=== PATIENT | female | born 2000 | race Caucasian/White ===

== ENCOUNTER 2023-09-02 08:39 | Emergency (ER) | payer OTHER ==
[2023-09-02 09:02] VITALS: TEMP 97.2
[2023-09-02] MEDS ORDERED: DEXAMETHASONE SOD PHOSPHATE 10 MG/ML 1 ML VIAL IVP STA (09:04)
[2023-09-02] MEDS ORDERED: SODIUM CHLORIDE 0.9% 1,000 ML IV STA (09:04)
[2023-09-02] MEDS ORDERED: ACETAMINOPHEN TAB 500 MG TAB PO STA (09:06)
[2023-09-02] MEDS ORDERED: KETOROLAC 15 MG/ML 1 ML VIAL IVP STA (09:06)
[2023-09-02] MEDS ORDERED: METOCLOPRAMIDE 5 MG/ML 2 ML VIAL IVP STA (09:08)
--- NOTE | 2023-09-02 09:28 | ED ---
General Adult HPI - General Chief complaint: Fever Stated complaint: Weakness/Fever Time Seen by Provider: 09/02/23 08:43 Source: patient, RN notes reviewed, old records reviewed Mode of arrival: ambulatory Limitations: no limitations - History of Present Illness Initial comments: Patient is a 22-year-old female with no significant past medical history who presents emergency Department complaining of fevers, chills, upper respiratory complaints including rhinorrhea, cough, sore throat last week. Does not seem to be improving. Is on day 2 of the Z-Uzair after she went to urgent care yesterday. Patient's significant other did have some symptoms which have resolved. She did recently travel to [place] as well. Denies any current nausea, vo miting, diarrhea. Did have a few episodes of emesis yesterday. Does endorse mild headache. Endorses some ear drainage as well. No other acute complaints at this time. Took ibuprofen last night. Currently afebrile. Presents for further evaluation. - Related Data Allergies Allergy/AdvReac Type Severity Reaction Status Date / Time cefprozil [From Cefzil] AdvReac Unknown Verified 09/02/23 08:47 Childhood Penicillins AdvReac Unknown Verified 09/02/23 08:47 Childhood Review of Systems ROS Statement: Those systems with pertinent positive or pertinent negative responses have been documented in the HPI. Review of Systems: CONST: Endorses fevers and chills EYES: Denies blurry vision ENT: Endorses nasal congestion, sore throat C/V: Denies Chest pain RESP: Denies shortness of breath GI: Denies abdominal pain : Denies dysuria SKIN: Denies rash. MSK: Denies joint pain. NEURO: Endorses mild headache ROS Other: All systems not noted in ROS Statement are negative. Past Medical History Past Medical History: No Reported History History of Any Multi-Drug Resistant Organisms: None Reported Past Surgical History: Ear Surgery Past Psychological History: No Psychological Hx Reported Smoking Status: Former smoker Past Alcohol Use History: Occasional Past Drug Use History: Marijuana General Exam - General Exam Comments Initial Comments: General: Appears in mild discomfort secondary to illness HEAD: Normal with no signs of head trauma. EYES: PERRLA, EOMI, conjunctiva normal, no discharge. ENT: Hearing grossly intact, normal oropharynx. Erythematous posterior oropharynx. No stridor. RESPIRATORY: Clear breath sounds bilaterally. No wheezes, rales, or rhonchi. No hypoxia. No increased work of breathing. C/V: Tachycardic. S1 and S2 auscultated, peripheral pulses 2+ and intact throughout ABD: Abd is soft, nontender, nondistended EXT: Normal range of motion, no obvious deformity SKIN: No rashes or lesions observed on exposed skin. NEURO: Alert and oriented 4.. Limitations: no limitations Course Vital Signs 09/02/23 09/02/23 08:47 10:00 Temperature 97.2 F L Pulse Rate 133 H 111 H Respiratory 16 24 Rate Blood Pressure 108/74 132/86 O2 Sat by Pulse 100 100 Oximetry Medical Decision Making - Medical Decision Making Was pt. sent in by a medical professional or institution (, PA, RUBBER AND POUNDER, urgent care, hospital, or residential...) When possible be specific @ -No Did you speak to anyone other than the patient for history (EMS, parent, family, police, friend...)? What history was obtained from this source @ -No Did you review nursing and triage notes (agree or disagree)? Why? @ -I reviewed and agree with nursing and triage notes Were old charts reviewed (outside hosp., previous admission, EMS record, old EKG, old radiological studies, urgent care reports/EKG's, residential records)? Report findings @ -No old charts were reviewed Differential Diagnosis (chest pain, altered mental status, abdominal pain women, abdominal pain men, vaginal bleeding, weakness, fever, dyspnea, syncope, headache, dizziness, GI bleed, back pain, seizure, CVA, palpatations, mental health, musculoskeletal)? @ -URI, strep pharyngitis, mono, Covid, flu, pneumonia. This list is not all inclusive. EKG interpreted by me (3pts min.). @ -None known X-rays interpreted by me (1pt min.). @ -Chest x-ray unremarkable. No obvious evidence of pneumonia or infiltrate. CT interpreted by me (1pt min.). @ -None done U/S interpreted by me (1pt. min.). @ -None done What testing was considered but not performed or refused? (CT, X-rays, U/S, labs)? Why? @ -None What meds were considered but not given or refused? Why? @ -None Did you discuss the management of the patient with other professionals (professionals i.e. , PA, RUBBER AND POUNDER, lab, RT, psych nurse, social work associate, [place] line attendant, teacher, revenue officer, corrections caseworker)? Give summary @ -No Was smoking cessation discussed for >3mins.? @ -No Was critical care preformed (if so, how long)? @ -No Were there social determinants of health that impacted care today? How? (Homelessness, low income, unemployed, alcoholism, drug addiction, transportation, low edu. Level, literacy, decrease access to med. care, long-term, rehab)? @ -No Was there de-escalation of care discussed even if they declined (Discuss DNR or withdrawal of care, Hospice)? DNR status @ -No What co-morbidities impacted this encounter? (DM, HTN, Smoking, COPD, CAD, Cancer, CVA, ARF, Chemo, Hep., AIDS, mental health diagnosis, sleep apnea, morbid obesity)? @ -None Was patient admitted / discharged? Hospital course, mention meds given and route, prescriptions, significant lab abnormalities, going to OR and other pertinent info. @ -Based on the patient's presentation and physical exam, I'm concerned for upper respiratory illness for the patient. We will obtain viral swabs, peripheral testing for mono, strep swab. We will also obtain chest x-ray. Patient will be symptomatically treated with some IV fluids, Reglan, Toradol, Decadron, Tylenol. Patient was in agreement this plan. Vital signs within acceptable limits other than mild tachycardia at this time. We will continue to monitor. Chest x-ray unremarkable. Patient's labs are negative for mono, flu, RSV, Covid, strep. On reevaluation, patient's vital signs improved including a tachycardia. She is feeling improved. She'll be discharged home following fluids. She was in agreement this plan. Discussion likely has a viral pharyngitis. She was started on a Z-Uzair by urgent care and I recommend she complete the course of antibiotics. I'll provide her with a starter pack of Zofran. She was in agreement this plan. I will provide the patient with a prescription for ODT Zofran. I instructed the patient to follow up with their PCP in the next 1-3 days. I explained that the patient should return to the emergency department if they experience any worsening symptoms. Strict return precautions were discussed with the patient. The patient expressed understanding of these instructions. I answered all questions that the patient had. The patient was discharged home in good condition with their prescriptions and follow up information. Undiagnosed new problem with uncertain prognosis? @ -No Drug Therapy requiring intensive monitoring for toxicity (Heparin, Nitro, Insulin, Cardizem)? @ -No Were any procedures done? @ -No Diagnosis/symptom? @ -URI, nausea and vomiting, viral syndrome Acute, or Chronic, or Acute on Chronic? @ -Acute Uncomplicated (without systemic symptoms) or Complicated (systemic symptoms)? @ -Complicated Side effects of treatment? @ -none Exacerbation, Progression, or Severe Exacerbation] @ -no Poses a threat to life or bodily function? @ -no - Lab Data Lab Results 09/02/23 09/02/23 09/02/23 Range/Units 09:28 09:28 09:28 Heterophile Antibody Negative (Negative) Influenza Type A (PCR) Not Detected (Not Detectd) Influenza Type B (PCR) Not Detected (Not Detectd) RSV (PCR) Not Detected (Not Detectd) SARS-CoV-2 (PCR) Not Detected (Not Detectd) Group A Strep (PCR) NOT DETECTED (Not Detectd) Disposition Clinical Impression: URI (upper respiratory infection), Nausea and vomiting, Viral syndrome Disposition: HOME SELF-CARE Condition: Good Instructions (If sedation given, give patient instructions): Viral Syndrome (ED) Is patient prescribed a controlled substance at d/c from ED?: No Referrals: None,Stated [Primary Care Provider] - 1-2 days Time of Disposition: 10:43
[2023-09-02 10:03] VITALS: BP 132/86; PULSE 111; RESP 24
--- NOTE | 2023-09-02 10:19 | XR ---
EXAMINATION TYPE: XR chest 2V DATE OF EXAM: 09/02/2023 10:03 AM CLINICAL INDICATION:Female, 22 years old with history of cough; [facility] COMPARISON: None TECHNIQUE: XR chest 2V Frontal and lateral views of the chest. FINDINGS: Lines/Tubes: No indwelling lines are seen. There are presumed extrinsic radiodensities over the field of view. Lungs/Pleura: There is no evidence of pleural effusion, focal consolidation, or pneumothorax. Pulmonary vascularity: Unremarkable. Heart/mediastinum: Cardiomediastinal silhouette is unremarkable. Musculoskeletal: No evidence of an acute bony abnormality. Other findings: None significant. IMPRESSION: Unremarkable chest radiographs.
[2023-09-02] MEDS ORDERED: ONDANSETRON 4 MG ODT STARTER PACK 2 TAB BTL PO STA (10:44)
== END 2023-09-02 11:12 | disposition home or self-care (01) ==
LOC: EC 08:39
DX: J06.9 Acute upper respiratory infection, unspecified (principal); B34.9 Viral infection, unspecified; R11.2 Nausea with vomiting, unspecified; Z87.891 Personal history of nicotine dependence; F12.90 Cannabis use, unspecified, uncomplicated; Z88.0 Allergy status to penicillin
CPT/HCPCS: 36415; 87651; 86308; 87636; 71046; 99284; 96374; 96375 ×2; 96361; J1100; J2765; J1885; S0119

== ENCOUNTER 2023-09-03 19:39 | Inpatient (IN) | payer OTHER ==
--- NOTE | 2023-09-03 20:29 | ED ---
URI HPI - General Source: RN notes reviewed <Shannon Mata - Last Filed: 09/04/23 00:36> - General Limitations: altered mental status - History of Present Illness MD Complaint: cough Onset/Timin -: week(s) Consistency: constant Improves With: nothing Worsens With: nothing Associated Symptoms: myalgias, nasal congestion, sore throat, shortness of breath Treatments Prior to Arrival: none <Rich Jackson - Last Filed: 09/10/23 20:23> - General Stated Complaint: SOB, Weakness,Chest Pain Time Seen by Provider: 09/03/23 20:27 - History of Present Illness Initial Comments: Patient is a 22-year-old female who presents to the emergency department for upper respiratory symptoms. Patient was evaluated yesterday for similar concern states she is feeling worse. (Shannon Mata) This patient is 22-year-old woman who arrives not feeling well. Patient has been having approximately one week of congestion, cough, shortness of breath. She states she is feeling very fatigued and rundown. (Rich Jackson) - Related Data Previous Rx's Medication Instructions Recorded INSULIN ASPART (NovoLOG) [NovoLOG 6 unit SQ ACHS 30 Days #5 each 09/06/23 (formulary)] Insulin Glargine,Hum.rec.anlog 35 units SQ HS 30 Days #6 each 09/07/23 [Lantus Solostar Pen] Potassium Chloride ER [K-Dur 20] 20 meq PO DAILY #30 tab 09/07/23 Allergies Allergy/AdvReac Type Severity Reaction Status Date / Time cefprozil [From Cefzil] AdvReac Unknown Verified 09/02/23 08:47 Childhood Penicillins AdvReac Unknown Verified 09/02/23 08:47 Childhood Review of Systems ROS Other: All systems not noted in ROS Statement are negative. <Shannon Mata - Last Filed: 09/04/23 00:36> ROS Other: All systems not noted in ROS Statement are negative. Limitations: ROS unobtainable due to patients medical condition Constitutional: Reports: weakness ENT: Reports: throat pain Respiratory: Reports: dyspnea Cardiovascular: Denies: chest pain, palpitations Gastrointestinal: Reports: nausea. Denies: abdominal pain, vomiting, diarrhea Genitourinary: Denies: dysuria, hematuria Musculoskeletal: Denies: back pain Skin: Denies: rash Neurological: Denies: headache, weakness, numbness <CassiaRich perez - Last Filed: 09/10/23 20:23> ROS Statement: Those systems with pertinent positive or pertinent negative responses have been documented in the HPI. Past Medical History Past Medical History: No Reported History History of Any Multi-Drug Resistant Organisms: None Reported Past Surgical History: Ear Surgery Past Psychological History: No Psychological Hx Reported Smoking Status: Former smoker Past Alcohol Use History: Occasional Past Drug Use History: Marijuana <Shannon Mata - Last Filed: 09/04/23 00:36> General Exam <Shannon Mata - Last Filed: 09/04/23 00:36> Limitations: altered mental status General appearance: alert, in no apparent distress Head exam: Present: atraumatic, normocephalic Eye exam: Present: normal appearance. Absent: scleral icterus, conjunctival injection ENT exam: Present: mucous membranes dry Neck exam: Present: normal inspection, full ROM Respiratory exam: Present: respiratory distress, other (Tachypnea with Kussmaul respirations). Absent: rales, rhonchi, stridor, decreased breath sounds Cardiovascular Exam: Present: normal rhythm, tachycardia, normal heart sounds. Absent: systolic murmur, diastolic murmur, rubs, gallop GI/Abdominal exam: Present: soft. Absent: distended, tenderness, guarding, rebound, rigid, mass Extremities exam: Present: normal inspection, normal capillary refill. Absent: pedal edema, calf tenderness Back exam: Present: normal inspection. Absent: CVA tenderness (R), CVA tenderness (L) Neurological exam: Present: alert Skin exam: Present: warm, dry, intact, normal color. Absent: rash <CassiaRich perez - Last Filed: 09/10/23 20:23> - General Exam Comments Initial Comments: Visual Physical Exam Vital signs reviewed General: Well-appearing, nontoxic, no acute distress. Head: Normocephalic, atraumatic Eyes: PERRLA, EOMI ENT: Airway patent Chest: Nonlabored breathing Skin: No visual rash, normal skin tone Neuro: Alert and oriented 3 Musculoskeletal: No gross abnormalities (EsperanzaShannon) Course Vital Signs 09/03/23 09/03/23 09/04/23 20:21 23:00 00:15 Temperature 98.7 F Pulse Rate 116 H 67 Respiratory 22 26 H 22 Rate Blood Pressure 116/73 131/93 O2 Sat by Pulse 99 95 Oximetry 09/04/23 01:30 Temperature Pulse Rate 126 H Respiratory 20 Rate Blood Pressure 131/87 O2 Sat by Pulse 100 Oximetry Medical Decision Making - Lab Data Result diagrams: 09/03/23 22:27 09/03/23 22:27 <Shannon Mata - Last Filed: 09/04/23 00:36> - Lab Data Result diagrams: 09/07/23 05:34 09/07/23 05:34 - EKG Data -: EKG Interpreted by Me EKG shows normal: sinus rhythm, axis (Normal), intervals (Normal), QRS complexes (Possible right ventricular conduction delay) Rate: tachycardia (Rate 111 bpm) Interpretation: nonspecific ST-T wave changes <Rich Jackson - Last Filed: 09/10/23 20:23> - Medical Decision Making I performed the QuickNote portion of this chart - Shannon Mata PA-C (Shannon Mata) Patient had chest x-ray which I interpreted to show no infiltrate, no congestive heart failure, no pneumothorax. Patient is 22-year-old woman here to have evaluation for fatigue, dyspnea, and on exam there findings concerning for possible DKA. The workup does reveal patient to be in DKA though no history of diabetes. Case is discussed with admitting physician, patient is started on fluid and insulin, patient will be admitted to have further treatment and education Was pt. sent in by a medical professional or institution (MARGY Washburn, REGULATORY AND COMPLIANCE TECHNICIAN, urgent care, hospital, or long term...) When possible be specific @ -[No] Did you speak to anyone other than the patient for history (EMS, parent, family, police, friend...)? What history was obtained from this source @ -[Patient's significant other did give some history Did you review nursing and triage notes (agree or disagree)? Why? @ -[I reviewed and agree with nursing and triage notes] Were old charts reviewed (outside hosp., previous admission, EMS record, old EKG, old radiological studies, urgent care reports/EKG's, long term records)? Report findings @ -[Yes, old charts were reviewed] Differential Diagnosis (chest pain, altered mental status, abdominal pain women, abdominal pain men, vaginal bleeding, weakness, fever, dyspnea, syncope, headache, dizziness, GI bleed, back pain, seizure, CVA, palpatations, mental health, musculoskeletal)? @ -[Differential Dyspnea: Coronary syndrome, arrhythmia, tamponade, asthma, COPD, pulmonary embolism, pneumonia, pneumothorax, pulmonary effusion, anaphylaxis, diabetic ketoacidosis, flailed chest, pulmonary contusion, diaphragmatic rupture, anemia, neuromuscular, this is not meant to be an all-inclusive list. EKG interpreted by me (3pts min.). @ -[As above] X-rays interpreted by me (1pt min.). @ -[I interpreted as above CT interpreted by me (1pt min.). @ -[None done] U/S interpreted by me (1pt. min.). @ -[None done] What testing was considered but not performed or refused? (CT, X-rays, U/S, labs)? Why? @ -[None] What meds were considered but not given or refused? Why? @ -[None] Did you discuss the management of the patient with other professionals (professionals i.e. , PA, REGULATORY AND COMPLIANCE TECHNICIAN, lab, RT, psych nurse, high school social science teacher, dairy nutritionist, teacher, commercial account officer, case resource manager)? Give summary @ -[Case discussed with the admitting physician and also with the mid-level practitioner covering ICU. Treatment recommendations are incorporated Was smoking cessation discussed for >3mins.? @ -[No] Was critical care preformed (if so, how long)? @ -[yes, 40 minutes Were there social determinants of health that impacted care today? How? (Homelessness, low income, unemployed, alcoholism, drug addiction, transp ortation, low edu. Level, literacy, decrease access to med. care, skilled nursing, rehab)? @ -[No] Was there de-escalation of care discussed even if they declined (Discuss DNR or withdrawal of care, Hospice)? DNR status @ -[No] What co-morbidities impacted this encounter? (DM, HTN, Smoking, COPD, CAD, Cancer, CVA, ARF, Chemo, Hep., AIDS, mental health diagnosis, sleep apnea, morbid obesity)? @ -[None] Was patient admitted / discharged? Hospital course, mention meds given and route, prescriptions, significant lab abnormalities, going to OR and other pertinent info. @ -[Admitted to ICU, as above Undiagnosed new problem with uncertain prognosis? @ -[No] Drug Therapy requiring intensive monitoring for toxicity (Heparin, Nitro, Insulin, Cardizem)? @ -[No] Were any procedures done? @ -[No] Diagnosis/symptom? @ -[Acute diabetic ketoacidosis New-onset diabetes Acute, or Chronic, or Acute on Chronic? @ -[Acute Uncomplicated (without systemic symptoms) or Complicated (systemic symptoms)? @ -[Complicated by ketoacidosis Side effects of treatment? @ -[No] Exacerbation, Progression, or Severe Exacerbation? @ -[No] Poses a threat to life or bodily function? How? (Chest pain, [place], [place], pneumonia, PE, COPD, DKA, ARF, appy, cholecystitis, CVA, Diverticulitis, Homicidal, Suicidal, threat to staff... and all critical care pts) @ -[Yes there is significant morbidity/mortality associated with DKA. May worsen to multisystem organ failure/ (Rich Jackson) - Lab Data Lab Results 09/03/23 09/03/23 09/03/23 Range/Units 01:13 22:27 22:27 WBC 16.1 H (3.8-10.6) k/uL RBC 5.36 (3.80-5.40) m/uL Hgb 15.8 (11.4-16.0) gm/dL Hct 46.3 H (34.0-46.0) % MCV 86.4 (80.0-100.0) fL MCH 29.4 (25.0-35.0) pg MCHC 34.1 (31.0-37.0) g/dL RDW 14.4 (11.5-15.5) % Plt Count 457 H (150-450) k/uL MPV 7.3 Neutrophils % (Manual) 78 % Lymphocytes % (Manual) 15 % Monocytes % (Manual) 7 % Metamyelocytes % 1 % Neutrophils # (Manual) 12.56 H (1.3-7.7) k/uL Lymphocytes # (Manual) 2.42 (1.0-4.8) k/uL Monocytes # (Manual) 1.13 H (0-1.0) k/uL Metamyelocytes # (Man) 0.16 H (0) k/uL Nucleated RBCs 0 (0-0) /100 WBC Manual Slide Review Performed Poikilocytosis (manual Present VBG pH 7.00 L* (7.31-7.41) VBG pCO2 22 L (37-51) mmHg VBG HCO3 6 L* (24-28) mmol/L Sodium 131 L (137-145) mmol/L Potassium 3.3 L (3.5-5.1) mmol/L Chloride 101 (98-107) mmol/L Carbon Dioxide <5 L* (22-30) mmol/L Anion Gap mmol/L BUN 7 (7-17) mg/dL Creatinine 0.69 (0.52-1.04) mg/dL Est GFR (CKD-EPI)AfAm >90 (>60 ml/min/1.73 sqM) Est GFR (CKD-EPI)NonAf >90 (>60 ml/min/1.73 sqM) Glucose 356 H (74-99) mg/dL POC Glucose (mg/dL) (70-110) mg/dL POC Glu [employer] Sales ID Calcium 10.7 H (8.4-10.2) mg/dL Total Bilirubin 0.9 (0.2-1.3) mg/dL AST 25 (14-36) U/L ALT 13 (4-34) U/L Alkaline Phosphatase 175 H (38-126) U/L Total Protein 8.2 (6.3-8.2) g/dL Albumin 4.5 (3.5-5.0) g/dL Acetone, Qual (Negative) Influenza Type A (PCR) (Not Detectd) Influenza Type B (PCR) (Not Detectd) RSV (PCR) (Not Detectd) SARS-CoV-2 (PCR) (Not Detectd) Group A Strep (PCR) (Not Detectd) 09/03/23 09/03/23 09/03/23 Range/Units 22:30 22:30 22:44 WBC (3.8-10.6) k/uL RBC (3.80-5.40) m/uL Hgb (11.4-16.0) gm/dL Hct (34.0-46.0) % MCV (80.0-100.0) fL MCH (25.0-35.0) pg MCHC (31.0-37.0) g/dL RDW (11.5-15.5) % Plt Count (150-450) k/uL MPV Neutrophils % (Manual) % Lymphocytes % (Manual) % Monocytes % (Manual) % Metamyelocytes % % Neutrophils # (Manual) (1.3-7.7) k/uL Lymphocytes # (Manual) (1.0-4.8) k/uL Monocytes # (Manual) (0-1.0) k/uL Metamyelocytes # (Man) (0) k/uL Nucleated RBCs (0-0) /100 WBC Manual Slide Review Poikilocytosis (manual VBG pH (7.31-7.41) VBG pCO2 (37-51) mmHg VBG HCO3 (24-28) mmol/L Sodium (137-145) mmol/L Potassium (3.5-5.1) mmol/L Chloride (98-107) mmol/L Carbon Dioxide (22-30) mmol/L Anion Gap mmol/L BUN (7-17) mg/dL Creatinine (0.52-1.04) mg/dL Est GFR (CKD-EPI)AfAm (>60 ml/min/1.73 sqM) Est GFR (CKD-EPI)NonAf (>60 ml/min/1.73 sqM) Glucose (74-99) mg/dL POC Glucose (mg/dL) (70-110) mg/dL POC Glu [employer] Sales ID Calcium (8.4-10.2) mg/dL Total Bilirubin (0.2-1.3) mg/dL AST (14-36) U/L ALT (4-34) U/L Alkaline Phosphatase (38-126) U/L Total Protein (6.3-8.2) g/dL Albumin (3.5-5.0) g/dL Acetone, Qual Positive (Negative) Influenza Type A (PCR) Not Detected (Not Detectd) Influenza Type B (PCR) Not Detected (Not Detectd) RSV (PCR) Not Detected (Not Detectd) SARS-CoV-2 (PCR) Not Detected (Not Detectd) Group A Strep (PCR) NOT DETECTED (Not Detectd) 09/04/23 Range/Units 00:20 WBC (3.8-10.6) k/uL RBC (3.80-5.40) m/uL Hgb (11.4-16.0) gm/dL Hct (34.0-46.0) % MCV (80.0-100.0) fL MCH (25.0-35.0) pg MCHC (31.0-37.0) g/dL RDW (11.5-15.5) % Plt Count (150-450) k/uL MPV Neutrophils % (Manual) % Lymphocytes % (Manual) % Monocytes % (Manual) % Metamyelocytes % % Neutrophils # (Manual) (1.3-7.7) k/uL Lymphocytes # (Manual) (1.0-4.8) k/uL Monocytes # (Manual) (0-1.0) k/uL Metamyelocytes # (Man) (0) k/uL Nucleated RBCs (0-0) /100 WBC Manual Slide Review Poikilocytosis (manual VBG pH (7.31-7.41) VBG pCO2 (37-51) mmHg VBG HCO3 (24-28) mmol/L Sodium (137-145) mmol/L Potassium (3.5-5.1) mmol/L Chloride (98-107) mmol/L Carbon Dioxide (22-30) mmol/L Anion Gap mmol/L BUN (7-17) mg/dL Creatinine (0.52-1.04) mg/dL Est GFR (CKD-EPI)AfAm (>60 ml/min/1.73 sqM) Est GFR (CKD-EPI)NonAf (>60 ml/min/1.73 sqM) Glucose (74-99) mg/dL POC Glucose (mg/dL) 320 H (70-110) mg/dL POC Glu [employer] Sales ID Mclaughlin, Priscilla Calcium (8.4-10.2) mg/dL Total Bilirubin (0.2-1.3) mg/dL AST (14-36) U/L ALT (4-34) U/L Alkaline Phosphatase (38-126) U/L Total Protein (6.3-8.2) g/dL Albumin (3.5-5.0) g/dL Acetone, Qual (Negative) Influenza Type A (PCR) (Not Detectd) Influenza Type B (PCR) (Not Detectd) RSV (PCR) (Not Detectd) SARS-CoV-2 (PCR) (Not Detectd) Group A Strep (PCR) (Not Detectd) Critical Care Time Critical Care Time: Yes (40 minutes) <Rich Jackson - Last Filed: 09/10/23 20:23> Disposition <Shannon Mata - Last Filed: 09/04/23 00:36> Is patient prescribed a controlled substance at d/c from ED?: No <Rich Jackson - Last Filed: 09/10/23 20:23> Clinical Impression: DKA (diabetic ketoacidosis) Disposition: ADMITTED IP TO THIS HOSP Condition: Fair
--- NOTE | 2023-09-03 21:14 | XR ---
EXAMINATION TYPE: XR chest 2V DATE OF EXAM: 09/03/2023 9:02 PM CLINICAL INDICATION:Female, 22 years old with history of SOB; COMPARISON: Chest radiographs from 09/02/2023 TECHNIQUE: XR chest 2V Frontal and lateral views of the chest. FINDINGS: Lungs/Pleura: There is no evidence of pleural effusion, focal consolidation, or pneumothorax. Pulmonary vascularity: Unremarkable. Heart/mediastinum: Cardiomediastinal silhouette is unremarkable. Musculoskeletal: No acute osseous pathology. IMPRESSION: No acute cardiopulmonary disease/process.
[2023-09-03 22:50] LABS: HCT 46.3 % (34.0-46.0); HGB 15.8 gm/dL (11.4-16.0); MCH 29.4 pg (25.0-35.0); MCHC 34.1 g/dL (31.0-37.0); MCV 86.4 fL (80.0-100.0); Mean Platelet Volume 7.3; Platelet Count 457 k/uL (150-450); RBC 5.36 m/uL (3.80-5.40); RDW 14.4 % (11.5-15.5); WBC 16.1 k/uL (3.8-10.6)
[2023-09-03 23:08] LABS: ALT 13 U/L (4-34); AST 25 U/L (14-36); African American GFR (CKD) >90 (>60 ml/min/1.73 sqM); Albumin 4.5 g/dL (3.5-5.0); Alkaline Phosphatase 175 U/L (38-126); Blood Urea Nitrogen 7 mg/dL (7-17); Calcium 10.7 mg/dL (8.4-10.2); Chloride 101 mmol/L (98-107); Glucose 356 mg/dL (74-99); Non-African American GFR(CKD) >90 (>60 ml/min/1.73 sqM); Sodium 131 mmol/L (137-145); Total Bilirubin 0.9 mg/dL (0.2-1.3); Total Protein 8.2 g/dL (6.3-8.2)
[2023-09-03 23:37] LABS: Carbon Dioxide <5 mmol/L (22-30); Potassium 3.3 mmol/L (3.5-5.1)
[2023-09-03] MEDS ORDERED: Potassium Replacement Protocol 1 EACH MISC MISCELLANE PRN (23:48)
[2023-09-03] MEDS ORDERED: Magnesium Replacement Protocol 1 EACH MISC MISCELLANE PRN (23:48)
[2023-09-03] MEDS ORDERED: SODIUM CHLORIDE 0.9% 1,000 ML IV ONE (23:48)
[2023-09-03] MEDS ORDERED: DEXTROSE 50% SYRINGE 50 ML IVP PRN ×2 (23:48)
[2023-09-03] MEDS ORDERED: INSULIN REGULAR BOLUS (FROM DRIP BAG) IV ONE (23:48)
[2023-09-04 00:24] LABS: Glucose,Whole Blood 320 mg/dL (70-110)
[2023-09-04] MEDS: INSULIN REGULAR 100 UNIT in SODIUM CHLORIDE 0.9% 100 ML IV SCH ×2 (00:34→12:28)
[2023-09-04] MEDS: SODIUM CHLORIDE 0.9% 1,000 ML IV SCH ×2 (00:35→02:36)
[2023-09-04 01:34] LABS: Glucose,Whole Blood 322 mg/dL (70-110)
[2023-09-04 01:42] LABS: Glucose,Whole Blood 259 mg/dL (70-110)
[2023-09-04 01:48] LABS: Lymphocytes # (M) 2.42 k/uL (1.0-4.8); Metamyelocytes # (M) 0.16 k/uL (0); Metamyelocytes % 1 %; Monocytes # (M) 1.13 k/uL (0-1.0); Neutrophils # (M) 12.56 k/uL (1.3-7.7); Neutrophils % (M) 78 %; Nucleated Red Blood Cells 0 /100 WBC (0-0); Total Cells Counted 200
[2023-09-04 01:52] LABS: Poikilocytosis (M) Present
[2023-09-04 02:12] LABS: Glucose,Whole Blood 227 mg/dL (70-110)
[2023-09-04] MEDS ORDERED: Potassium Replacement Protocol 1 EACH MISC MISCELLANE PRN (02:15)
--- NOTE | 2023-09-04 02:28 | P.CNPUL ---
History of Present Illness Consult date: 09/04/23 Requesting physician: Rich Jackson Reason for consult: other (ICU management) Chief complaint: Shortness of breath and cough History of present illness: I am seeing this patient in new consultation today 09/04/2023 in the intensive care unit for acute diabetic ketoacidosis with new onset diabetes mellitus type 1. Patient is a 22-year-old white female with limited past medical history. Patient states over the last 1 week she's been experiencing URI like symptoms such as fever, chills, cough, rhinorrhea, sore throat. She was treated at a local urgent care clinic with a Z-Uzair. Does not have a PCP. She states that she's been feeling rundown for the last week. Reports some recent weight loss. Admits polyuria and polydipsia. She came back to the emergency room yesterday after experiencing some nausea and vomiting. On arrival to emergency room, she was found to be in a state of diabetic ketoacidosis. Blood glucose 356, serum bicarb less than 5, anion gap unmeasurable, acetone positive. Patient was started on the DKA protocol. Insulin is currently infusing at 6.4 units per hour. Normal saline is infusing at 200 ML's per hour. She is currently lying in bed, on room air, in no acute distress. She has kussmaul respirations. Heart rhythm is sinus tachycardia bedside monitor. Blood pressure is normotensive. Chest x-ray on arrival did not show any acute cardiopulmonary pro cess. Negative for influenza, RSV, COVID-19, group A strep. CBC on arrival showed some leukocytosis with a WBC count of 16.1, hemoglobin 15.8, hematocrit 46.3, platelets 457. Remainder of the BMP on arrival shows a sodium 131, potassium 3.3, chloride 101, BUN 7, creatinine 0.69. Urinalysis pending. Currently afebrile. Patient will be monitored in the ICU until her DKA resolves. Review of Systems REVIEW OF SYSTEMS: CONSTITUTIONAL: Admits some recent weight loss EYES: Denies change in vision. EARS, NOSE, MOUTH, THROAT: Admits generalized headache, rhinorrhea, sore throat. CARDIOVASCULAR: Denies chest pain, palpitations or syncopal episodes. RESPIRATORY: Denies shortness of breath, congestion or hemoptysis. Admits dry cough GASTROINTESTINAL: Denies change in appetite, abdominal pain, or diarrhea. Admits nausea and vomiting GENITOURINARY: Denies hematuria, denies infections. Admits polyuria MUSKULOSKELETAL: Denies pain, denies swelling. INTEGUMENTARY: Denies rash, denies eczema. NEUROLOGICAL: Denies recent memory loss, no recent seizure activity. PSYCHIATRIC: Denies anxiety, denies depression. HEMATOLOGIC/LYMPHATIC: Denies anemia, denies enlarged lymph node Past Medical History Past Medical History: No Reported History History of Any Multi-Drug Resistant Organisms: None Reported Past Surgical History: Ear Surgery Past Psychological History: No Psychological Hx Reported Smoking Status: Former smoker Past Alcohol Use History: Occasional Past Drug Use History: Marijuana Medications and Allergies Allergies Allergy/AdvReac Type Severity Reaction Status Date / Time cefprozil [From Cefzil] AdvReac Unknown Verified 09/02/23 08:47 Childhood Penicillins AdvReac Unknown Verified 09/02/23 08:47 Childhood Physical Exam Vitals: Vital Signs Temp Pulse Resp BP Pulse Ox 09/04/23 01:30 126 H 20 131/87 100 09/04/23 00:15 67 22 131/93 95 09/03/23 23:00 26 H 09/03/23 20:21 98.7 F 116 H 22 116/73 99 Intake and Output 09/03/23 09/03/23 09/04/23 14:59 22:59 06:59 Intake Total 200 Balance 200 Intake: IV 200 Sodium Chloride 0.9% 1, 200 000 ml @ 200 mls/hr IV . Q5H [facility] Rx#:[id number] Other: Weight 64.41 kg GENERAL EXAM: Alert, 22-year-old white female, comfortable in no apparent distress. HEAD: Normocephalic and atraumatic EYES: Normal reaction of pupils, equal size. NOSE: Clear with pink turbinates. THROAT: Posterior oral pharynx is erythemic, no exudates. Dry mucous membranes NECK: No masses, no JVD. CHEST: No chest wall deformity. LUNGS: Equal air entry with no crackles, wheeze, rhonchi or dullness. On room air. Kussmaul respirations CVS: S1 and S2 normal with no audible murmur, regular rhythm. No extra heart sounds ABDOMEN: No hepatosplenomegaly, active bowel sounds, no guarding or rigidity. SPINE: No scoliosis or deformity SKIN: No rashes CENTRAL NERVOUS SYSTEM: No focal deficits, tone is normal in all 4 extremities. EXTREMITIES: There is no peripheral edema, clubbing, or cyanosis. Peripheral pulses are intact. Results - Laboratory Findings CBC and BMP: 09/03/23 22:27 09/03/23 22:27 Abnormal lab findings: Abnormal Labs 09/03/23 09/03/23 09/03/23 01:13 22:27 22:27 WBC 16.1 H Hct 46.3 H Plt Count 457 H Neutrophils # (Manual) 12.56 H Monocytes # (Manual) 1.13 H Metamyelocytes # (Man) 0.16 H VBG pH 7.00 L* VBG pCO2 22 L VBG HCO3 6 L* Sodium 131 L Potassium 3.3 L Carbon Dioxide <5 L* Glucose 356 H POC Glucose (mg/dL) Calcium 10.7 H Alkaline Phosphatase 175 H 09/04/23 09/04/23 09/04/23 00:20 01:28 01:40 WBC Hct Plt Count Neutrophils # (Manual) Monocytes # (Manual) Metamyelocytes # (Man) VBG pH VBG pCO2 VBG HCO3 Sodium Potassium Carbon Dioxide Glucose POC Glucose (mg/dL) 320 H 322 H 259 H Calcium Alkaline Phosphatase - Diagnostic Findings Chest x-ray: image reviewed Assessment and Plan Assessment: Acute diabetic ketoacidosis Metabolic anion gap acidosis, secondary to above New-onset type 1 diabetes mellitus Suspected viral URI Leukocytosis, likely reactive DKA Plan: Patient's medications, labs, chest x-ray reviewed Continue DKA protocol and insulin infusion Monitor electrolytes every 4 hours and replace potassium per protocol Consult dietitian Patient educated on new-onset diabetes mellitus type 1 We will continue to follow while the patient is being monitored in the intensive care unit I have personally seen and examined the patient, performed the documentation and the assessment and plan as written. Number of minutes spent on the visit:20 Time with Patient: Greater than 30
[2023-09-04] MEDS: D5-0.45% NACL WITH KCL 20MEQ/L 1,000 ML IV SCH ×3 (02:35→15:41)
[2023-09-04] MEDS: POTASSIUM CHLORIDE 10 MEQ in WATER FOR INJECTION 1 100ML.BAG IVPB SCH ×12 (02:36→16:30)
[2023-09-04 03:05] LABS: Glucose,Whole Blood 184 mg/dL (70-110)
[2023-09-04 04:09] LABS: Amorphous Sediment,Urine Rare /hpf; Bacteria,Urine Rare /hpf; Granular Casts,Urine 4 /lpf (0); Hyaline Casts,Urine 7 /lpf (0-2); Mucus,Urine Rare /hpf; RBC,Urine 3 /hpf (0-5); Squamous Epithelial Cell,Urine 2 /hpf (0-4)
[2023-09-04 04:10] LABS: Appearance,Urine Clear (Clear); Color,Urine Yellow; Glucose,Urine (UA) 2+ (Negative); PH, Urine 5.5 (5.0-8.0); Protein,Urine 1+ (Negative); Specific Gravity,Urine 1.015 (1.001-1.035)
[2023-09-04 04:11] LABS: Glucose,Whole Blood 212 mg/dL (70-110)
[2023-09-04 04:12] LABS: Bilirubin,Urine Negative (Negative); Ketones,Urine 3+ (Negative)
[2023-09-04 04:13] LABS: Blood,Urine Large (Negative); Leukocyte Esterase,Urine Negative (Negative); Nitrite,Urine Negative (Negative); Urobilinogen,Urine <2.0 mg/dL (<2.0)
[2023-09-04 04:56] LABS: African American GFR (CKD) >90 (>60 ml/min/1.73 sqM); Anion Gap 17 mmol/L; Blood Urea Nitrogen 6 mg/dL (7-17); Chloride 111 mmol/L (98-107); Glucose 212 mg/dL (74-99); Non-African American GFR(CKD) >90 (>60 ml/min/1.73 sqM); Sodium 135 mmol/L (137-145)
[2023-09-04 05:21] LABS: Glucose,Whole Blood 224 mg/dL (70-110)
[2023-09-04 05:44] LABS: Carbon Dioxide 7 mmol/L (22-30); Phosphorus 0.9 mg/dL (2.5-4.5); Potassium 2.4 mmol/L (3.5-5.1)
[2023-09-04 06:11] LABS: Glucose,Whole Blood 231 mg/dL (70-110)
[2023-09-04] MEDS ORDERED: Phosphorus Replacement Protoco 1 EACH MISC MISCELLANE PRN (06:26)
[2023-09-04 07:05] LABS: Glucose,Whole Blood 234 mg/dL (70-110)
[2023-09-04] MEDS ORDERED: SODIUM PHOSPHATE 60 MMOL in DEXTROSE 5% IN WATER 250 ML IVPB ONE ×2 (07:30)
--- NOTE | 2023-09-04 07:46 | P.HPIM ---
History of Present Illness This is a pleasant 22 years old female with no significant past medical history. Patient denies previous history of diabetes. Denies previous hospitalization. She takes only ibuprofen at home. She doesn't follow up with PCP or other physician. She presents because of sore throats for 1 week associated with yellow phlegm and coughing. Yesterday she started vomiting so she decided to come to the emergency room. She also she was emergency room about 2 days earlier for similar symptoms and she was treatment symptomatically. Before that she received Z-Uzair from urgent care also with no much relief patient this morning she The hospital and it's name of the [facility] but she could not tell the exact date, month, she couldn't remember the year 2022 , she could not remember the name of the current president. Also patient noticed to have hoarseness of voice that started also about one week. She states she has little shortness of breath and for the last 3 days she has mild central chest pain felt like just tightness. Her aunts nonradiating pain. No abdominal pain, no diarrhea, no urinary symptoms, no vaginal discharge, no headache dizziness weakness or numbness. Smoking alcohol or illicit drugs. On admission she was tachycardic and tachypneic saturating 99% on room air. Currently heart rate is around 200 and respiratory rate 18-20. Blood pressure 120/71. Hemoglobin 15.8 and platelet count 457. Venous pH is low 7.0 and venous pCO2 low at 22 and bicarb is low at 6 Not showing low sodium of 131, 135, low potassium 2.4, phosphorus low 0.9. Glucose was elevated with a range of 184-322 Liver enzymes not significantly elevated EKG showing junctional tachycardia with possible right ventricular conduction delay Patient was admitted to the intensive care unit and started on diabetic ketoacidosis treatment with insulin drip per protocol Review of Systems Review of systems CONSTITUTIONAL: No fever, no malaise, no fatigue. HEENT: No recent visual problems or hearing problems. Denied any sore throat. CARDIOVASCULAR: No orthopnea, PND, no palpitations, no syncope. PULMONARY: No shortness of breath, no cough, no hemoptysis. GASTROINTESTINAL: No diarrhea, no nausea, no vomiting, no abdominal pain. Normoactive bowel sounds. NEUROLOGICAL: No headaches, no weakness, no numbness. HEMATOLOGICAL: Denies any bleeding or petechiae. GENITOURINARY: Denies any burning micturition, frequency, or urgency. MUSCULOSKELETAL/RHEUMATOLOGICAL: Denies any joint pain, swelling, or any muscle pain. ENDOCRINE: Denies any polyuria or polydipsia. Past Medical History Past Medical History: No Reported History History of Any Multi-Drug Resistant Organisms: None Reported Past Surgical History: Ear Surgery Past Anesthesia/Blood Transfusion Reactions: No Reported Reaction Smoking Status: Never smoker Medications and Allergies Allergies Allergy/AdvReac Type Severity Reaction Status Date / Time cefprozil [From Cefzil] AdvReac Unknown Verified 09/02/23 08:47 Childhood Penicillins AdvReac Unknown Verified 09/02/23 08:47 Childhood Physical Exam Vitals: Vital Signs Temp Pulse Resp BP Pulse Ox 09/04/23 06:00 103 H 20 123/71 97 09/04/23 05:30 106 H 21 111/61 09/04/23 05:00 103 H 19 120/67 97 09/04/23 04:30 106 H 19 121/77 97 09/04/23 04:00 99 F 104 H 19 115/79 97 09/04/23 03:30 95 19 138/82 98 09/04/23 03:00 106 H 18 138/77 98 09/04/23 02:30 101 H 18 137/82 98 09/04/23 02:08 98.6 F 96 18 120/80 99 09/04/23 01:30 126 H 20 131/87 100 09/04/23 00:15 67 22 131/93 95 09/03/23 23:00 26 H 09/03/23 20:21 98.7 F 116 H 22 116/73 99 Intake and Output 09/03/23 09/03/23 09/04/23 14:59 22:59 06:59 Intake Total 1200 Output Total 900 Balance 300 Intake: IV 1200 D5-0.45% NaCl with KCl 600 20Meq/l 1,000 ml @ 150 mls/hr IV .Q6H40M [facility] Rx# :[id number] Potassium Chloride 10 meq 400 In Water For Injection 1 100ml.bag @ 100 mls/hr IVPB Q1HR [facility] Rx#: [id number] Sodium Chloride 0.9% 1, 200 000 ml @ 200 mls/hr IV . Q5H [facility] Rx#:[id number] Output: Urine 900 Other: Voiding Method Bedpan Weight 64.41 kg 64.41 kg -GENERAL: The patient is alert and oriented x1-3 partially, slow to respond, not in any acute distress. Well developed, well nourished. Looks weak -HEENT: Pupils are round and equally reacting to light. EOMI. No scleral icterus. No conjunctival pallor. Normocephalic, atraumatic. No pharyngeal erythema. No thyromegaly. pharyngitis with purulent yellow secretions seen on the back of her throat CARDIOVASCULAR: S1 and S2 present. No murmurs, rubs, or gallops. PULMONARY: Chest is clear to auscultation, no wheezing , no crackles. ABDOMEN: Soft, nontender, nondistended, normoactive bowel sounds. No palpable organomegaly. MUSCULOSKELETAL: No joint swelling or deformity. EXTREMITIES: No cyanosis, clubbing, or pedal edema. NEUROLOGICAL: Gross neurological examination did not reveal any focal deficits. SKIN: No rashes. no petechiae. Results CBC & Chem 7: 09/03/23 22:27 09/04/23 03:53 Labs: Abnormal Lab Results - Last 24 Hours (Table) 09/03/23 09/03/23 09/03/23 Range/Units 01:13 22:27 22:27 WBC 16.1 H (3.8-10.6) k/uL Hct 46.3 H (34.0-46.0) % Plt Count 457 H (150-450) k/uL Neutrophils # (Manual) 12.56 H (1.3-7.7) k/uL Monocytes # (Manual) 1.13 H (0-1.0) k/uL Metamyelocytes # (Man) 0.16 H (0) k/uL VBG pH 7.00 L* (7.31-7.41) VBG pCO2 22 L (37-51) mmHg VBG HCO3 6 L* (24-28) mmol/L Sodium 131 L (137-145) mmol/L Potassium 3.3 L (3.5-5.1) mmol/L Chloride (98-107) mmol/L Carbon Dioxide <5 L* (22-30) mmol/L BUN (7-17) mg/dL Glucose 356 H (74-99) mg/dL POC Glucose (mg/dL) (70-110) mg/dL Calcium 10.7 H (8.4-10.2) mg/dL Phosphorus (2.5-4.5) mg/dL Alkaline Phosphatase 175 H (38-126) U/L Urine Protein (Negative) Urine Glucose (UA) (Negative) Urine Ketones (Negative) Amorphous Sediment (None) /hpf Urine Bacteria (None) /hpf Hyaline Casts (0-2) /lpf Urine Mucus (None) /hpf 09/04/23 09/04/23 09/04/23 Range/Units 00:20 01:28 01:40 WBC (3.8-10.6) k/uL Hct (34.0-46.0) % Plt Count (150-450) k/uL Neutrophils # (Manual) (1.3-7.7) k/uL Monocytes # (Manual) (0-1.0) k/uL Metamyelocytes # (Man) (0) k/uL VBG pH (7.31-7.41) VBG pCO2 (37-51) mmHg VBG HCO3 (24-28) mmol/L Sodium (137-145) mmol/L Potassium (3.5-5.1) mmol/L Chloride (98-107) mmol/L Carbon Dioxide (22-30) mmol/L BUN (7-17) mg/dL Glucose (74-99) mg/dL POC Glucose (mg/dL) 320 H 322 H 259 H (70-110) mg/dL Calcium (8.4-10.2) mg/dL Phosphorus (2.5-4.5) mg/dL Alkaline Phosphatase (38-126) U/L Urine Protein (Negative) Urine Glucose (UA) (Negative) Urine Ketones (Negative) Amorphous Sediment (None) /hpf Urine Bacteria (None) /hpf Hyaline Casts (0-2) /lpf Urine Mucus (None) /hpf 09/04/23 09/04/23 09/04/23 Range/Units 02:11 03:04 03:13 WBC (3.8-10.6) k/uL Hct (34.0-46.0) % Plt Count (150-450) k/uL Neutrophils # (Manual) (1.3-7.7) k/uL Monocytes # (Manual) (0-1.0) k/uL Metamyelocytes # (Man) (0) k/uL VBG pH (7.31-7.41) VBG pCO2 (37-51) mmHg VBG HCO3 (24-28) mmol/L Sodium (137-145) mmol/L Potassium (3.5-5.1) mmol/L Chloride (98-107) mmol/L Carbon Dioxide (22-30) mmol/L BUN (7-17) mg/dL Glucose (74-99) mg/dL POC Glucose (mg/dL) 227 H 184 H (70-110) mg/dL Calcium (8.4-10.2) mg/dL Phosphorus (2.5-4.5) mg/dL Alkaline Phosphatase (38-126) U/L Urine Protein 1+ H (Negative) Urine Glucose (UA) 2+ H (Negative) Urine Ketones 3+ H (Negative) Amorphous Sediment Rare H (None) /hpf Urine Bacteria Rare H (None) /hpf Hyaline Casts 7 H (0-2) /lpf Urine Mucus Rare H (None) /hpf 09/04/23 09/04/23 09/04/23 Range/Units 03:53 04:10 05:19 WBC (3.8-10.6) k/uL Hct (34.0-46.0) % Plt Count (150-450) k/uL Neutrophils # (Manual) (1.3-7.7) k/uL Monocytes # (Manual) (0-1.0) k/uL Metamyelocytes # (Man) (0) k/uL VBG pH (7.31-7.41) VBG pCO2 (37-51) mmHg VBG HCO3 (24-28) mmol/L Sodium 135 L (137-145) mmol/L Potassium 2.4 L* (3.5-5.1) mmol/L Chloride 111 H (98-107) mmol/L Carbon Dioxide 7 L* (22-30) mmol/L BUN 6 L (7-17) mg/dL Glucose 212 H (74-99) mg/dL POC Glucose (mg/dL) 212 H 224 H (70-110) mg/dL Calcium (8.4-10.2) mg/dL Phosphorus 0.9 L* (2.5-4.5) mg/dL Alkaline Phosphatase (38-126) U/L Urine Protein (Negative) Urine Glucose (UA) (Negative) Urine Ketones (Negative) Amorphous Sediment (None) /hpf Urine Bacteria (None) /hpf Hyaline Casts (0-2) /lpf Urine Mucus (None) /hpf 09/04/23 Range/Units 06:09 WBC (3.8-10.6) k/uL Hct (34.0-46.0) % Plt Count (150-450) k/uL Neutrophils # (Manual) (1.3-7.7) k/uL Monocytes # (Manual) (0-1.0) k/uL Metamyelocytes # (Man) (0) k/uL VBG pH (7.31-7.41) VBG pCO2 (37-51) mmHg VBG HCO3 (24-28) mmol/L Sodium (137-145) mmol/L Potassium (3.5-5.1) mmol/L Chloride (98-107) mmol/L Carbon Dioxide (22-30) mmol/L BUN (7-17) mg/dL Glucose (74-99) mg/dL POC Glucose (mg/dL) 231 H (70-110) mg/dL Calcium (8.4-10.2) mg/dL Phosphorus (2.5-4.5) mg/dL Alkaline Phosphatase (38-126) U/L Urine Protein (Negative) Urine Glucose (UA) (Negative) Urine Ketones (Negative) Amorphous Sediment (None) /hpf Urine Bacteria (None) /hpf Hyaline Casts (0-2) /lpf Urine Mucus (None) /hpf Thrombosis Risk Factor Assmnt - Choose All That Apply Any of the Below Risk Factors Present?: No Other Risk Factors: No Other congenital or acquired thrombophilia - If yes, enter type in comment: No Thrombosis Risk Factor Assessment Level: Very Low Risk Assessment and Plan Assessment: Severe pharyngitis with Upper respiratory tract infection, failed outpatient treatment Diabetic ketoacidosis Acute metabolic acidosis secondary to above new-onset diabetes mellitus Junctional tachycardia with mild chest pain Dehydration Mild metabolic/toxic encephalopathy Plan: Continue with insulin drip per protocol Monitor electrolytes and replace accordingly Continue with IV hydration The monitoring in the ICU Check hemoglobin A1c, TSH, poorcalcitonin and CRP Cardiology consult for junctional tachycardia I checked with our staff, there is no ENT coverage of this facility this week, Labs and medication were reviewed.. Continue same treatment. Continue with symptomatic treatment. Resume home medication. Monitor labs and vitals. DVT and GI prophylaxis. Further recommendations as per clinical course of the patient DVT prophylaxis: Subcutaneous heparin GI Prophylaxis: Pepcid Prognosis is guarded
[2023-09-04 08:41] LABS: African American GFR (CKD) >90 (>60 ml/min/1.73 sqM); Anion Gap 15 mmol/L; Blood Urea Nitrogen 6 mg/dL (7-17); Chloride 111 mmol/L (98-107); Glucose 222 mg/dL (74-99); Non-African American GFR(CKD) >90 (>60 ml/min/1.73 sqM); Sodium 135 mmol/L (137-145)
[2023-09-04 08:45] LABS: HCG,Qualitative Serum Not Detected
[2023-09-04 08:55] LABS: Phosphorus 0.7 mg/dL (2.5-4.5)
[2023-09-04 08:58] LABS: Carbon Dioxide 9 mmol/L (22-30); Potassium 2.4 mmol/L (3.5-5.1)
[2023-09-04 09:14] LABS: Glucose,Whole Blood 232 mg/dL (70-110)
[2023-09-04 09:55] LABS: C Reactive Protein 12.9 mg/dL (<1.0); Phosphorus 0.7 mg/dL (2.5-4.5)
[2023-09-04 10:03] LABS: Glucose,Whole Blood 239 mg/dL (70-110)
[2023-09-04 11:09] LABS: Glucose,Whole Blood 215 mg/dL (70-110)
[2023-09-04 12:13] LABS: Glucose,Whole Blood 219 mg/dL (70-110)
[2023-09-04 13:07] LABS: Glucose,Whole Blood 195 mg/dL (70-110)
[2023-09-04 14:13] LABS: Glucose,Whole Blood 193 mg/dL (70-110)
[2023-09-04 15:03] LABS: Glucose,Whole Blood 213 mg/dL (70-110)
[2023-09-04 16:13] LABS: Glucose,Whole Blood 168 mg/dL (70-110)
[2023-09-04 17:01] LABS: Glucose,Whole Blood 155 mg/dL (70-110)
[2023-09-04 19:01] LABS: Glucose,Whole Blood 165 mg/dL (70-110)
[2023-09-04 19:38] LABS: African American GFR (CKD) >90 (>60 ml/min/1.73 sqM); Anion Gap 11 mmol/L; Blood Urea Nitrogen 4 mg/dL (7-17); Calcium 10.3 mg/dL (8.4-10.2); Carbon Dioxide 14 mmol/L (22-30); Chloride 112 mmol/L (98-107); Glucose 180 mg/dL (74-99); Non-African American GFR(CKD) >90 (>60 ml/min/1.73 sqM); Phosphorus 1.4 mg/dL (2.5-4.5); Sodium 137 mmol/L (137-145)
[2023-09-04 20:19] LABS: Glucose,Whole Blood 193 mg/dL (70-110)
[2023-09-04] MEDS: FAMOTIDINE 20 MG/2 ML VIAL IV SCH (20:43)
[2023-09-04] MEDS: POTASSIUM CHLORIDE ER 20 MEQ TAB.ER PO SCH (20:43)
[2023-09-04] MEDS: HEPARIN SODIUM,PORCINE 5,000 UNIT/ML 1 ML VIAL SQ SCH (20:43)
[2023-09-04] MEDS: D5-0.45% NACL WITH KCL 40MEQ/L 1,000 ML IV SCH (20:43)
[2023-09-04 21:02] LABS: Glucose,Whole Blood 201 mg/dL (70-110)
[2023-09-04 22:07] LABS: Glucose,Whole Blood 158 mg/dL (70-110)
[2023-09-04 23:00] LABS: Glucose,Whole Blood 149 mg/dL (70-110)
[2023-09-05] MEDS: POTASSIUM CHLORIDE ER 20 MEQ TAB.ER PO SCH ×11 (00:21→23:57)
[2023-09-05 00:28] LABS: Glucose,Whole Blood 160 mg/dL (70-110)
[2023-09-05 00:56] LABS: African American GFR (CKD) >90 (>60 ml/min/1.73 sqM); Anion Gap 9 mmol/L; Blood Urea Nitrogen 3 mg/dL (7-17); Calcium 10.4 mg/dL (8.4-10.2); Carbon Dioxide 15 mmol/L (22-30); Chloride 112 mmol/L (98-107); Glucose 159 mg/dL (74-99); Non-African American GFR(CKD) >90 (>60 ml/min/1.73 sqM); Sodium 136 mmol/L (137-145)
[2023-09-05 00:58] LABS: Potassium 2.3 mmol/L (3.5-5.1)
[2023-09-05 01:04] LABS: Glucose,Whole Blood 160 mg/dL (70-110)
[2023-09-05 01:40] LABS: Glucose,Whole Blood 175 mg/dL (70-110)
[2023-09-05 02:04] LABS: Glucose,Whole Blood 174 mg/dL (70-110)
[2023-09-05] MEDS: D5-0.45% NACL WITH KCL 40MEQ/L 1,000 ML IV SCH ×2 (02:50→10:46)
[2023-09-05 03:11] LABS: Glucose,Whole Blood 171 mg/dL (70-110)
[2023-09-05 04:12] LABS: Glucose,Whole Blood 186 mg/dL (70-110)
[2023-09-05 05:12] LABS: Glucose,Whole Blood 201 mg/dL (70-110)
[2023-09-05] MEDS: INSULIN REGULAR 100 UNIT in SODIUM CHLORIDE 0.9% 100 ML IV SCH (05:31)
[2023-09-05 06:09] LABS: Basophils # (A) 0.1 k/uL (0-0.2); Basophils % (A) 1 %; Eosinophils # (A) 0.1 k/uL (0-0.7); Eosinophils % (A) 1 %; HCT 37.3 % (34.0-46.0); HGB 13.1 gm/dL (11.4-16.0); Lymphocytes % (A) 17 %; MCH 29.3 pg (25.0-35.0); MCHC 35.2 g/dL (31.0-37.0); MCV 83.3 fL (80.0-100.0); Mean Platelet Volume 6.7; Monocytes # (A) 0.2 k/uL (0-1.0); Monocytes % (A) 2 %; Neutrophils # (A) 8.9 k/uL (1.3-7.7); Neutrophils % (A) 75 %; Platelet Count 417 k/uL (150-450); RBC 4.48 m/uL (3.80-5.40); RDW 14.3 % (11.5-15.5); WBC 11.9 k/uL (3.8-10.6)
[2023-09-05 06:15] LABS: Glucose,Whole Blood 217 mg/dL (70-110)
[2023-09-05 06:26] LABS: African American GFR (CKD) >90 (>60 ml/min/1.73 sqM); Anion Gap 12 mmol/L; Blood Urea Nitrogen 2 mg/dL (7-17); Calcium 10.3 mg/dL (8.4-10.2); Carbon Dioxide 15 mmol/L (22-30); Chloride 110 mmol/L (98-107); Glucose 198 mg/dL (74-99); Non-African American GFR(CKD) >90 (>60 ml/min/1.73 sqM); Sodium 137 mmol/L (137-145)
[2023-09-05 06:30] LABS: Potassium 2.7 mmol/L (3.5-5.1)
[2023-09-05 06:58] LABS: Glucose,Whole Blood 240 mg/dL (70-110)
[2023-09-05] MEDS: POTASSIUM CHLORIDE 10 MEQ in WATER FOR INJECTION 1 100ML.BAG IVPB SCH ×3 (07:05→10:33)
[2023-09-05 07:06] LABS: Magnesium 2.2 mg/dL (1.6-2.3)
[2023-09-05 08:06] LABS: Glucose,Whole Blood 246 mg/dL (70-110)
[2023-09-05] MEDS: HEPARIN SODIUM,PORCINE 5,000 UNIT/ML 1 ML VIAL SQ SCH ×2 (08:17→20:50)
[2023-09-05] MEDS: FAMOTIDINE 20 MG/2 ML VIAL IV SCH ×2 (08:18→20:50)
[2023-09-05 09:13] LABS: Glucose,Whole Blood 261 mg/dL (70-110)
[2023-09-05 10:27] LABS: Glucose,Whole Blood >600 mg/dL (70-110)
[2023-09-05 10:27] LABS: Glucose,Whole Blood 251 mg/dL (70-110)
[2023-09-05 10:27] LABS: Glucose,Whole Blood >600 mg/dL (70-110)
--- NOTE | 2023-09-05 11:07 | P.PN ---
Subjective Progress Note Date: 09/05/23 Principal diagnosis: Acute DKA I am seeing this patient in new consultation today 09/04/2023 in the intensive care unit for acute diabetic ketoacidosis with new onset diabetes mellitus type 1. Patient is a 22-year-old white female with limited past medical history. Patient states over the last 1 week she's been experiencing URI like symptoms such as fever, chills, cough, rhinorrhea, sore throat. She was treated at a local urgent care clinic with a Z-Uzair. Does not have a PCP. She states that she's been feeling rundown for the last week. Reports some recent weight loss. Admits polyuria and polydipsia. She came back to the emergency room yesterday after experiencing some nausea and vomiting. On arrival to emergency room, she was found to be in a state of diabetic ketoacidosis. Blood glucose 356, serum bicarb less than 5, anion gap unmeasurable, acetone positive. Patient was started on the DKA protocol. Insulin is currently infusing at 6.4 units per hour. Normal saline is infusing at 200 ML's per hour. She is currently lying in bed, on room air, in no acute distress. She has kussmaul respirations. Heart rhythm is sinus tachycardia bedside monitor. Blood pressure is normotensive. Chest x-ray on arrival did not show any acute cardiopulmonary process. Negative for influenza, RSV, COVID-19, group A strep. CBC on arrival showed some leukocytosis with a WBC count of 16.1, hemoglobin 15.8, hematocrit 46.3, platelets 457. Remainder of the BMP on arrival shows a sodium 131, potassium 3.3, chloride 101, BUN 7, creatinine 0.69. Urinalysis pending. C urrently afebrile. Patient will be monitored in the ICU until her DKA resolves. Patient was reevaluated today on 09/05/2023, remains in the ICU, remains on the DKA protocol, her anion gap has closed however her that sugar remains elevated potassium remains low at 2.7, and her bicarb remains low in the range of 15. Patient is having replacement of her potassium, receiving aggressive replacement protocol. Clinically she is feeling better, breathing fine, denies any shortness of breath, denies any nausea vomiting or abdominal pain. Blood sugar remains a bit elevated at 251. Remains on insulin drip. She is receiving insulin at 3.25 units per hour. And she is on D5 4 5 at 1 50 mL per hour. Objective - Vital Signs Vital signs: Vital Signs Temp 97.1 F L 09/05/23 08:00 Pulse 108 H 09/05/23 10:00 Resp 14 09/05/23 10:00 BP 118/85 09/05/23 10:00 Pulse Ox 97 09/05/23 10:00 FiO2 Intake & Output 09/04/23 09/05/23 09/05/23 18:59 06:59 18:59 Intake Total 2477.41 2969.698 700 Output Total 2400 2000 675 Balance 77.41 969.698 25 Weight 64.41 kg 67.7 kg Intake: IV 2400 1800 600 D5-0.45% NaCl with KCl 1800 300 20Meq/l 1,000 ml @ 150 mls/hr IV .Q6H40M [facility] Rx# :[id number] D5-0.45% NaCl with KCl 1500 600 40Meq/l 1,000 ml @ 150 mls/hr IV .Q6H40M [facility] Rx# :[id number] Potassium Chloride 10 meq 600 In Water For Injection 1 100ml.bag @ 100 mls/hr IVPB Q1HR [facility] Rx#: [id number] Intake, IV Titration 77.41 89.698 100 Amount Insulin Regular 100 unit 77.41 89.698 In Sodium Chloride 0.9% 100 ml @ 0.1 UNITS/KG/HR 6.505 mls/hr IV .[id number] [facility] Rx#:[id number] Potassium Chloride 10 meq 100 In Water For Injection 1 100ml.bag @ 100 mls/hr IVPB Q1HR [facility] Rx#: [id number] Oral 1080 Output: Urine 2400 2000 675 Other: Voiding Method Bedside Commode Bedside Commode Bedside Commode # Voids 1 - Exam Physical Exam: Revealed a 22-year-old female in no distress Head: Atraumatic normocephalic HEENT:[Neck is supple.] [No neck masses.] [No thyromegaly.] [No JVD.] Chest: [Clear throughout, no crackles, no rhonchi, no wheezes.] Cardiac Exam: [Normal S1 and S2, no S3 gallop, no murmur.] Abdomen: [Soft, nontender, no megaly, no rebound, no guarding, normal bowel sounds.] Extremities: [No clubbing, no edema, no cyanosis.] Neurological Exam: [No focal neurologic deficit.] Psychiatric: Normal mood affect and normal mental status examination Skin: No rashes - Labs CBC & Chem 7: 09/05/23 05:26 09/05/23 05:26 Labs: Abnormal Lab Results - Last 24 Hours (Table) 09/04/23 09/04/23 09/04/23 Range/Units 07:32 11:08 12:12 WBC (3.8-10.6) k/uL Neutrophils # (1.3-7.7) k/uL Sodium (137-145) mmol/L Potassium (3.5-5.1) mmol/L Chloride (98-107) mmol/L Carbon Dioxide (22-30) mmol/L BUN (7-17) mg/dL Creatinine (0.52-1.04) mg/dL Glucose (74-99) mg/dL POC Glucose (mg/dL) 215 H 219 H (70-110) mg/dL Calcium (8.4-10.2) mg/dL Phosphorus (2.5-4.5) mg/dL Procalcitonin 0.10 H (0.02-0.09) ng/mL 09/04/23 09/04/23 09/04/23 Range/Units 13:06 14:13 15:01 WBC (3.8-10.6) k/uL Neutrophils # (1.3-7.7) k/uL Sodium (137-145) mmol/L Potassium (3.5-5.1) mmol/L Chloride (98-107) mmol/L Carbon Dioxide (22-30) mmol/L BUN (7-17) mg/dL Creatinine (0.52-1.04) mg/dL Glucose (74-99) mg/dL POC Glucose (mg/dL) 195 H 193 H 213 H (70-110) mg/dL Calcium (8.4-10.2) mg/dL Phosphorus (2.5-4.5) mg/dL Procalcitonin (0.02-0.09) ng/mL 09/04/23 09/04/23 09/04/23 Range/Units 16:12 17:00 19:00 WBC (3.8-10.6) k/uL Neutrophils # (1.3-7.7) k/uL Sodium (137-145) mmol/L Potassium (3.5-5.1) mmol/L Chloride (98-107) mmol/L Carbon Dioxide (22-30) mmol/L BUN (7-17) mg/dL Creatinine (0.52-1.04) mg/dL Glucose (74-99) mg/dL POC Glucose (mg/dL) 168 H 155 H 165 H (70-110) mg/dL Calcium (8.4-10.2) mg/dL Phosphorus (2.5-4.5) mg/dL Procalcitonin (0.02-0.09) ng/mL 09/04/23 09/04/23 09/04/23 Range/Units 19:01 20:17 21:01 WBC (3.8-10.6) k/uL Neutrophils # (1.3-7.7) k/uL Sodium (137-145) mmol/L Potassium 2.0 L* (3.5-5.1) mmol/L Chloride 112 H (98-107) mmol/L Carbon Dioxide 14 L (22-30) mmol/L BUN 4 L (7-17) mg/dL Creatinine (0.52-1.04) mg/dL Glucose 180 H (74-99) mg/dL POC Glucose (mg/dL) 193 H 201 H (70-110) mg/dL Calcium 10.3 H (8.4-10.2) mg/dL Phosphorus 1.4 L (2.5-4.5) mg/dL Procalcitonin (0.02-0.09) ng/mL 09/04/23 09/04/23 09/05/23 Range/Units 22:06 22:58 00:27 WBC (3.8-10.6) k/uL Neutrophils # (1.3-7.7) k/uL Sodium (137-145) mmol/L Potassium (3.5-5.1) mmol/L Chloride (98-107) mmol/L Carbon Dioxide (22-30) mmol/L BUN (7-17) mg/dL Creatinine (0.52-1.04) mg/dL Glucose (74-99) mg/dL POC Glucose (mg/dL) 158 H 149 H 160 H (70-110) mg/dL Calcium (8.4-10.2) mg/dL Phosphorus (2.5-4.5) mg/dL Procalcitonin (0.02-0.09) ng/mL 09/05/23 09/05/23 09/05/23 Range/Units 00:30 01:02 01:37 WBC (3.8-10.6) k/uL Neutrophils # (1.3-7.7) k/uL Sodium 136 L (137-145) mmol/L Potassium 2.3 L* (3.5-5.1) mmol/L Chloride 112 H (98-107) mmol/L Carbon Dioxide 15 L (22-30) mmol/L BUN 3 L (7-17) mg/dL Creatinine 0.46 L (0.52-1.04) mg/dL Glucose 159 H (74-99) mg/dL POC Glucose (mg/dL) 160 H 175 H (70-110) mg/dL Calcium 10.4 H (8.4-10.2) mg/dL Phosphorus (2.5-4.5) mg/dL Procalcitonin (0.02-0.09) ng/mL 09/05/23 09/05/23 09/05/23 Range/Units 02:03 03:09 04:09 WBC (3.8-10.6) k/uL Neutrophils # (1.3-7.7) k/uL Sodium (137-145) mmol/L Potassium (3.5-5.1) mmol/L Chloride (98-107) mmol/L Carbon Dioxide (22-30) mmol/L BUN (7-17) mg/dL Creatinine (0.52-1.04) mg/dL Glucose (74-99) mg/dL POC Glucose (mg/dL) 174 H 171 H 186 H (70-110) mg/dL Calcium (8.4-10.2) mg/dL Phosphorus (2.5-4.5) mg/dL Procalcitonin (0.02-0.09) ng/mL 09/05/23 09/05/23 09/05/23 Range/Units 05:10 05:26 05:26 WBC 11.9 H (3.8-10.6) k/uL Neutrophils # 8.9 H (1.3-7.7) k/uL Sodium (137-145) mmol/L Potassium 2.7 L* (3.5-5.1) mmol/L Chloride 110 H (98-107) mmol/L Carbon Dioxide 15 L (22-30) mmol/L BUN 2 L (7-17) mg/dL Creatinine 0.49 L (0.52-1.04) mg/dL Glucose 198 H (74-99) mg/dL POC Glucose (mg/dL) 201 H (70-110) mg/dL Calcium 10.3 H (8.4-10.2) mg/dL Phosphorus (2.5-4.5) mg/dL Procalcitonin (0.02-0.09) ng/mL 09/05/23 09/05/23 09/05/23 Range/Units 06:14 06:57 08:05 WBC (3.8-10.6) k/uL Neutrophils # (1.3-7.7) k/uL Sodium (137-145) mmol/L Potassium (3.5-5.1) mmol/L Chloride (98-107) mmol/L Carbon Dioxide (22-30) mmol/L BUN (7-17) mg/dL Creatinine (0.52-1.04) mg/dL Glucose (74-99) mg/dL POC Glucose (mg/dL) 217 H 240 H 246 H (70-110) mg/dL Calcium (8.4-10.2) mg/dL Phosphorus (2.5-4.5) mg/dL Procalcitonin (0.02-0.09) ng/mL 09/05/23 09/05/23 09/05/23 Range/Units 09:11 10:23 10:24 WBC (3.8-10.6) k/uL Neutrophils # (1.3-7.7) k/uL Sodium (137-145) mmol/L Potassium (3.5-5.1) mmol/L Chloride (98-107) mmol/L Carbon Dioxide (22-30) mmol/L BUN (7-17) mg/dL Creatinine (0.52-1.04) mg/dL Glucose (74-99) mg/dL POC Glucose (mg/dL) 261 H >600 H >600 H (70-110) mg/dL Calcium (8.4-10.2) mg/dL Phosphorus (2.5-4.5) mg/dL Procalcitonin (0.02-0.09) ng/mL 09/05/23 Range/Units 10:25 WBC (3.8-10.6) k/uL Neutrophils # (1.3-7.7) k/uL Sodium (137-145) mmol/L Potassium (3.5-5.1) mmol/L Chloride (98-107) mmol/L Carbon Dioxide (22-30) mmol/L BUN (7-17) mg/dL Creatinine (0.52-1.04) mg/dL Glucose (74-99) mg/dL POC Glucose (mg/dL) 251 H (70-110) mg/dL Calcium (8.4-10.2) mg/dL Phosphorus (2.5-4.5) mg/dL Procalcitonin (0.02-0.09) ng/mL Assessment and Plan Assessment: Impression: Acute diabetic ketoacidosis New-onset type 1 diabetes Acute anion gap metabolic acidosis secondary to acute DKA Recent URI/viral Recommendation: Continue DKA protocol Continue replacement of potassium Continue to monitor electrolytes and anion gap as well as blood sugar Likely transition to sliding scale and Accu-Cheks later this afternoon. We will continue to follow and continue to monitor in ICU Time with Patient: Less than 30
[2023-09-05 11:32] LABS: Glucose,Whole Blood 250 mg/dL (70-110)
[2023-09-05] MEDS ORDERED: SODIUM CHLORIDE 0.45% 1,000 ML IV ONE (11:55)
[2023-09-05] MEDS ORDERED: INSULIN DETEMIR (LEVEMIR) 100 UNIT/ML SYR SQ SCH ×2 (12:00→21:30)
[2023-09-05 12:09] LABS: African American GFR (CKD) >90 (>60 ml/min/1.73 sqM); Anion Gap 11 mmol/L; Blood Urea Nitrogen <2 mg/dL (7-17); Calcium 9.7 mg/dL (8.4-10.2); Carbon Dioxide 16 mmol/L (22-30); Chloride 108 mmol/L (98-107); Glucose 254 mg/dL (74-99); Non-African American GFR(CKD) >90 (>60 ml/min/1.73 sqM); Potassium 3.2 mmol/L (3.5-5.1); Sodium 135 mmol/L (137-145)
[2023-09-05 12:25] LABS: Glucose,Whole Blood 281 mg/dL (70-110)
[2023-09-05] MEDS ORDERED: POTAS-SOD-PHOS 278-164-250 MG 1 EACH PACKET PO ONE ×2 (12:39→16:52)
[2023-09-05] MEDS ORDERED: Phosphorus Replacement Protoco 1 EACH MISC MISCELLANE PRN ×2 (12:39→16:52)
[2023-09-05] MEDS ORDERED: Potassium Replacement Protocol 1 EACH MISC MISCELLANE PRN ×3 (12:41→21:26)
[2023-09-05] MEDS: INSULIN ASPART (NovoLOG) 100 UNIT/ML VIAL SQ SCH ×3 (12:50→20:51)
--- NOTE | 2023-09-05 15:54 | P.PN ---
Subjective Progress Note Date: 09/05/23 This is a pleasant 22 years old female with no significant past medical history. Patient denies previous history of diabetes. Denies previous hospitalization. She takes only ibuprofen at home. She doesn't follow up with PCP or other physician. She presents because of sore throats for 1 week associated with yellow phlegm and coughing. Yesterday she started vomiting so she [facility] She also she was emergency room about 2 days earlier for similar symptoms and she was treatment symptomatically. Before that she received Z-Uzair from urgent care also with no much relief patient this morning she The hospital and it's name of the city [place] but she could not tell the exact date, month, she couldn't remember the year 2022 , she could not remember the name of the current president. Also patient noticed to have hoarseness of voice that started also about one week. She states she has little shortness of breath and for the last 3 days she has mild central chest pain felt like just tightness. Her aunts nonradiating pain. No abdominal pain, no diarrhea, no urinary symptoms, no vaginal discharge, no headache dizziness weakness or numbness. Smoking alcohol or illicit drugs. On admission she was tachycardic and tachypneic saturating 99% on room air. Currently heart rate is around 200 and respiratory rate 18-20. Blood pressure 120/71. Hemoglobin 15.8 and platelet count 457. Venous pH is low 7.0 and venous pCO2 low at 22 and bicarb is low at 6 Not showing low sodium of 131, 135, low potassium 2.4, phosphorus low 0.9. Glucose was elevated with a range of 184-322 Liver enzymes not significantly elevated EKG showing junctional tachycardia with possible right ventricular conduction delay Patient was admitted to the intensive care unit and started on diabetic ketoacidosis treatment with insulin drip per protocol 09/05/2023 Patient is seen in ICU per DKA protocol with new-onset diabetes and maintained on insulin drip with elevated blood sugars. Patient also with significant hypokalemia being replaced per protocol will add additional dosing and re commended follow-up labs. Patient denies any chest pain or shortness of breath does feel congested although breathing fine and reports sore throat is improved. Patient will be given long-acting insulin and then follow DKA protocol and discontinue the drip and will continue with Accu-Cheks before meals and at bedtime as well as 2 AM and start sliding-scale and add pre-meal insulin as needed. Patient with a hemoglobin A1c of 14 will need insulin on discharge and will discuss further with case management along with dietary about discharge planning needs. Patient reports has not been out of the bed much since admission and encouraged increase activity as tolerated. Patient is currently afebrile with no reports of chest pain or palpitations. Follow-up labs ordered for this afternoon as well. Review of systems: Constitutional: No reports of fatigue, fever, or chills Cardiovascular: No reports of chest pain or palpitations Respiratory: No reports of shortness of breath or cough, reports congestion GI: No reports of nausea, vomiting, or diarrhea : No reports of dysuria or retention Neurovascular: reports of generalized weakness All medications have been reviewed Physical exam: GENERAL: The patient is alert and oriented x3 Well developed, well nourished. Pale -HEENT: Pupils are round and equally reacting to light. EOMI. No scleral icterus. No conjunctival pallor. Normocephalic, atraumatic. No pharyngeal erythema. No thyromegaly. pharyngitis with purulent yellow secretions seen on the back of her throat CARDIOVASCULAR: S1 and S2 present. No murmurs, rubs, or gallops. PULMONARY: Chest is clear to auscultation, no wheezing , no crackles. Sinus congestion noted on exam ABDOMEN: Soft, nontender, nondistended, normoactive bowel sounds. No palpable organomegaly. MUSCULOSKELETAL: No joint swelling or deformity. EXTREMITIES: No cyanosis, clubbing, or pedal edema. NEUROLOGICAL: Gross neurological examination did not reveal any focal deficits. SKIN: No rashes. no petechiae. Assessment: Severe pharyngitis with Upper respiratory tract infection, failed outpatient treatment Diabetic ketoacidosis with new onset diabetes mellitus, hemoglobin A1c is 14.0 Acute metabolic acidosis secondary to above , improving Junctional tachycardia with mild chest pain Dehydration Mild metabolic/toxic encephalopathy secondary to DKA DVT prophylaxis GI prophylaxis Full code Plan: Continue with insulin drip per protocol and we'll transition to long-acting along with Accu-Cheks before meals and at bedtime and sliding scale and will add pre-meal insulin as needed. Discontinue the drip and transition hydration to half-normal saline Follow-up labs ordered for this afternoon and will repeat in a.m. 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 Dr. Felicia MD I have performed a history and examination and MDM of this patient, discussed the same with the dictator, and agree with the dictator's assessment and plan as written ,documented as a scribe. Based on total visit time, I have performed more than 50% of the visit. Objective - Vital Signs Vital signs: Vital Signs Temp 97.6 F 09/05/23 00:00 Pulse 96 09/05/23 07:00 Resp 22 09/05/23 07:00 BP 117/87 09/05/23 07:00 Pulse Ox 97 09/05/23 07:00 FiO2 Intake & Output 09/04/23 09/05/23 09/05/23 18:59 06:59 18:59 Intake Total 2477.41 2969.698 150 Output Total 2400 2000 Balance 77.41 969.698 150 Weight 64.41 kg 67.7 kg Intake: IV 2400 1800 150 D5-0.45% NaCl with KCl 1800 300 20Meq/l 1,000 ml @ 150 mls/hr IV .Q6H40M [facility] Rx# :[id number] D5-0.45% NaCl with KCl 1500 150 40Meq/l 1,000 ml @ 150 mls/hr IV .Q6H40M [facility] Rx# :[id number] Potassium Chloride 10 meq 600 In Water For Injection 1 100ml.bag @ 100 mls/hr IVPB Q1HR [facility] Rx#: [id number] Intake, IV Titration 77.41 89.698 Amount Insulin Regular 100 unit 77.41 89.698 In Sodium Chloride 0.9% 100 ml @ 0.1 UNITS/KG/HR 6.505 mls/hr IV .[id number] [facility] Rx#:[id number] Oral 1080 Output: Urine 2400 2000 Other: Voiding Method Bedside Commode Bedside Commode # Voids 1 - Labs CBC & Chem 7: 09/05/23 05:26 09/05/23 11:55 Labs: Abnormal Lab Results - Last 24 Hours (Table) 09/04/23 09/04/23 09/04/23 Range/Units 07:32 07:32 07:32 WBC (3.8-10.6) k/uL Neutrophils # (1.3-7.7) k/uL Sodium 135 L (137-145) mmol/L Potassium 2.4 L* (3.5-5.1) mmol/L Chloride 111 H (98-107) mmol/L Carbon Dioxide 9 L* (22-30) mmol/L BUN 6 L (7-17) mg/dL Creatinine (0.52-1.04) mg/dL Glucose 222 H (74-99) mg/dL POC Glucose (mg/dL) (70-110) mg/dL Hemoglobin A1c 14.0 H (<=6.0) % Calcium (8.4-10.2) mg/dL Phosphorus 0.7 L* 0.7 L* (2.5-4.5) mg/dL C-Reactive Protein 12.9 H (<1.0) mg/dL Procalcitonin (0.02-0.09) ng/mL 09/04/23 09/04/23 09/04/23 Range/Units 07:32 09:12 10:01 WBC (3.8-10.6) k/uL Neutrophils # (1.3-7.7) k/uL Sodium (137-145) mmol/L Potassium (3.5-5.1) mmol/L Chloride (98-107) mmol/L Carbon Dioxide (22-30) mmol/L BUN (7-17) mg/dL Creatinine (0.52-1.04) mg/dL Glucose (74-99) mg/dL POC Glucose (mg/dL) 232 H 239 H (70-110) mg/dL Hemoglobin A1c (<=6.0) % Calcium (8.4-10.2) mg/dL Phosphorus (2.5-4.5) mg/dL C-Reactive Protein (<1.0) mg/dL Procalcitonin 0.10 H (0.02-0.09) ng/mL 09/04/23 09/04/23 09/04/23 Range/Units 11:08 12:12 13:06 WBC (3.8-10.6) k/uL Neutrophils # (1.3-7.7) k/uL Sodium (137-145) mmol/L Potassium (3.5-5.1) mmol/L Chloride (98-107) mmol/L Carbon Dioxide (22-30) mmol/L BUN (7-17) mg/dL Creatinine (0.52-1.04) mg/dL Glucose (74-99) mg/dL POC Glucose (mg/dL) 215 H 219 H 195 H (70-110) mg/dL Hemoglobin A1c (<=6.0) % Calcium (8.4-10.2) mg/dL Phosphorus (2.5-4.5) mg/dL C-Reactive Protein (<1.0) mg/dL Procalcitonin (0.02-0.09) ng/mL 09/04/23 09/04/23 09/04/23 Range/Units 14:13 15:01 16:12 WBC (3.8-10.6) k/uL Neutrophils # (1.3-7.7) k/uL Sodium (137-145) mmol/L Potassium (3.5-5.1) mmol/L Chloride (98-107) mmol/L Carbon Dioxide (22-30) mmol/L BUN (7-17) mg/dL Creatinine (0.52-1.04) mg/dL Glucose (74-99) mg/dL POC Glucose (mg/dL) 193 H 213 H 168 H (70-110) mg/dL Hemoglobin A1c (<=6.0) % Calcium (8.4-10.2) mg/dL Phosphorus (2.5-4.5) mg/dL C-Reactive Protein (<1.0) mg/dL Procalcitonin (0.02-0.09) ng/mL 09/04/23 09/04/23 09/04/23 Range/Units 17:00 19:00 19:01 WBC (3.8-10.6) k/uL Neutrophils # (1.3-7.7) k/uL Sodium (137-145) mmol/L Potassium 2.0 L* (3.5-5.1) mmol/L Chloride 112 H (98-107) mmol/L Carbon Dioxide 14 L (22-30) mmol/L BUN 4 L (7-17) mg/dL Creatinine (0.52-1.04) mg/dL Glucose 180 H (74-99) mg/dL POC Glucose (mg/dL) 155 H 165 H (70-110) mg/dL Hemoglobin A1c (<=6.0) % Calcium 10.3 H (8.4-10.2) mg/dL Phosphorus 1.4 L (2.5-4.5) mg/dL C-Reactive Protein (<1.0) mg/dL Procalcitonin (0.02-0.09) ng/mL 09/04/23 09/04/23 09/04/23 Range/Units 20:17 21:01 22:06 WBC (3.8-10.6) k/uL Neutrophils # (1.3-7.7) k/uL Sodium (137-145) mmol/L Potassium (3.5-5.1) mmol/L Chloride (98-107) mmol/L Carbon Dioxide (22-30) mmol/L BUN (7-17) mg/dL Creatinine (0.52-1.04) mg/dL Glucose (74-99) mg/dL POC Glucose (mg/dL) 193 H 201 H 158 H (70-110) mg/dL Hemoglobin A1c (<=6.0) % Calcium (8.4-10.2) mg/dL Phosphorus (2.5-4.5) mg/dL C-Reactive Protein (<1.0) mg/dL Procalcitonin (0.02-0.09) ng/mL 09/04/23 09/05/23 09/05/23 Range/Units 22:58 00:27 00:30 WBC (3.8-10.6) k/uL Neutrophils # (1.3-7.7) k/uL Sodium 136 L (137-145) mmol/L Potassium 2.3 L* (3.5-5.1) mmol/L Chloride 112 H (98-107) mmol/L Carbon Dioxide 15 L (22-30) mmol/L BUN 3 L (7-17) mg/dL Creatinine 0.46 L (0.52-1.04) mg/dL Glucose 159 H (74-99) mg/dL POC Glucose (mg/dL) 149 H 160 H (70-110) mg/dL Hemoglobin A1c (<=6.0) % Calcium 10.4 H (8.4-10.2) mg/dL Phosphorus (2.5-4.5) mg/dL C-Reactive Protein (<1.0) mg/dL Procalcitonin (0.02-0.09) ng/mL 09/05/23 09/05/23 09/05/23 Range/Units 01:02 01:37 02:03 WBC (3.8-10.6) k/uL Neutrophils # (1.3-7.7) k/uL Sodium (137-145) mmol/L Potassium (3.5-5.1) mmol/L Chloride (98-107) mmol/L Carbon Dioxide (22-30) mmol/L BUN (7-17) mg/dL Creatinine (0.52-1.04) mg/dL Glucose (74-99) mg/dL POC Glucose (mg/dL) 160 H 175 H 174 H (70-110) mg/dL Hemoglobin A1c (<=6.0) % Calcium (8.4-10.2) mg/dL Phosphorus (2.5-4.5) mg/dL C-Reactive Protein (<1.0) mg/dL Procalcitonin (0.02-0.09) ng/mL 09/05/23 09/05/23 09/05/23 Range/Units 03:09 04:09 05:10 WBC (3.8-10.6) k/uL Neutrophils # (1.3-7.7) k/uL Sodium (137-145) mmol/L Potassium (3.5-5.1) mmol/L Chloride (98-107) mmol/L Carbon Dioxide (22-30) mmol/L BUN (7-17) mg/dL Creatinine (0.52-1.04) mg/dL Glucose (74-99) mg/dL POC Glucose (mg/dL) 171 H 186 H 201 H (70-110) mg/dL Hemoglobin A1c (<=6.0) % Calcium (8.4-10.2) mg/dL Phosphorus (2.5-4.5) mg/dL C-Reactive Protein (<1.0) mg/dL Procalcitonin (0.02-0.09) ng/mL 09/05/23 09/05/23 09/05/23 Range/Units 05:26 05:26 06:14 WBC 11.9 H (3.8-10.6) k/uL Neutrophils # 8.9 H (1.3-7.7) k/uL Sodium (137-145) mmol/L Potassium 2.7 L* (3.5-5.1) mmol/L Chloride 110 H (98-107) mmol/L Carbon Dioxide 15 L (22-30) mmol/L BUN 2 L (7-17) mg/dL Creatinine 0.49 L (0.52-1.04) mg/dL Glucose 198 H (74-99) mg/dL POC Glucose (mg/dL) 217 H (70-110) mg/dL Hemoglobin A1c (<=6.0) % Calcium 10.3 H (8.4-10.2) mg/dL Phosphorus (2.5-4.5) mg/dL C-Reactive Protein (<1.0) mg/dL Procalcitonin (0.02-0.09) ng/mL 09/05/23 09/05/23 Range/Units 06:57 08:05 WBC (3.8-10.6) k/uL Neutrophils # (1.3-7.7) k/uL Sodium (137-145) mmol/L Potassium (3.5-5.1) mmol/L Chloride (98-107) mmol/L Carbon Dioxide (22-30) mmol/L BUN (7-17) mg/dL Creatinine (0.52-1.04) mg/dL Glucose (74-99) mg/dL POC Glucose (mg/dL) 240 H 246 H (70-110) mg/dL Hemoglobin A1c (<=6.0) % Calcium (8.4-10.2) mg/dL Phosphorus (2.5-4.5) mg/dL C-Reactive Protein (<1.0) mg/dL Procalcitonin (0.02-0.09) ng/mL
[2023-09-05 16:42] LABS: Glucose,Whole Blood 242 mg/dL (70-110)
[2023-09-05 16:47] LABS: African American GFR (CKD) >90 (>60 ml/min/1.73 sqM); Anion Gap 8 mmol/L; Blood Urea Nitrogen 3 mg/dL (7-17); Calcium 9.5 mg/dL (8.4-10.2); Carbon Dioxide 17 mmol/L (22-30); Chloride 108 mmol/L (98-107); Glucose 254 mg/dL (74-99); Non-African American GFR(CKD) >90 (>60 ml/min/1.73 sqM); Potassium 3.1 mmol/L (3.5-5.1); Sodium 133 mmol/L (137-145)
[2023-09-05 19:51] LABS: Glucose,Whole Blood 368 mg/dL (70-110)
[2023-09-05] MEDS ORDERED: INSULIN ASPART (NovoLOG) 100 UNIT/ML VIAL SQ ONE ×2 (20:07→20:37)
[2023-09-05] MEDS ORDERED: INSULIN DETEMIR (LEVEMIR) 100 UNIT/ML SYR SQ ONE ×2 (20:30→22:30)
[2023-09-05] MEDS: SODIUM CHLORIDE 0.45% 1,000 ML IV SCH (22:39)
[2023-09-06 05:40] LABS: HCT 32.8 % (34.0-46.0); HGB 11.6 gm/dL (11.4-16.0); MCHC 35.4 g/dL (31.0-37.0); Platelet Count 391 k/uL (150-450); RDW 14.3 % (11.5-15.5); WBC 9.6 k/uL (3.8-10.6)
[2023-09-06 05:58] LABS: ALT 12 U/L (4-34); AST 17 U/L (14-36); African American GFR (CKD) >90 (>60 ml/min/1.73 sqM); Albumin 2.7 g/dL (3.5-5.0); Alkaline Phosphatase 118 U/L (38-126); Anion Gap 7 mmol/L; Blood Urea Nitrogen 4 mg/dL (7-17); Calcium 9.2 mg/dL (8.4-10.2); Carbon Dioxide 22 mmol/L (22-30); Chloride 106 mmol/L (98-107); Glucose 166 mg/dL (74-99); Non-African American GFR(CKD) >90 (>60 ml/min/1.73 sqM); Phosphorus 2.5 mg/dL (2.5-4.5); Potassium 3.1 mmol/L (3.5-5.1); Sodium 135 mmol/L (137-145); Total Bilirubin 0.7 mg/dL (0.2-1.3); Total Protein 5.5 g/dL (6.3-8.2)
[2023-09-06 06:28] LABS: Band Neutrophils % 2 %; Lymphocytes # (M) 2.88 k/uL (1.0-4.8); Metamyelocytes # (M) 0.48 k/uL (0); Metamyelocytes % 5 %; Monocytes # (M) 1.06 k/uL (0-1.0); Myelocytes # (M) 0.38 k/uL (0); Myelocytes % 4 %; Neutrophils % (M) 48 %; Nucleated Red Blood Cells 0 /100 WBC (0-0); Total Cells Counted 100
[2023-09-06 06:36] LABS: Glucose,Whole Blood 187 mg/dL (70-110)
[2023-09-06] MEDS ORDERED: Potassium Replacement Protocol 1 EACH MISC MISCELLANE PRN (06:45)
[2023-09-06] MEDS: POTASSIUM CHLORIDE ER 20 MEQ TAB.ER PO SCH ×4 (06:50→20:35)
[2023-09-06] MEDS: INSULIN ASPART (NovoLOG) 100 UNIT/ML VIAL SQ SCH ×4 (06:50→20:34)
[2023-09-06] MEDS: INSULIN DETEMIR (LEVEMIR) 100 UNIT/ML SYR SQ SCH ×2 (06:50→20:35)
[2023-09-06] MEDS: HEPARIN SODIUM,PORCINE 5,000 UNIT/ML 1 ML VIAL SQ SCH ×2 (08:50→20:34)
[2023-09-06] MEDS: FAMOTIDINE 20 MG/2 ML VIAL IV SCH ×2 (08:50→20:34)
[2023-09-06] MEDS: SODIUM CHLORIDE 0.45% 1,000 ML IV SCH (09:08)
[2023-09-06 11:05] VITALS: BMI 24.7
[2023-09-06 11:09] LABS: Glucose,Whole Blood 325 mg/dL (70-110)
[2023-09-06] MEDS ORDERED: INSULIN ASPART (NovoLOG) 100 UNIT/ML VIAL SQ ONE (11:23)
--- NOTE | 2023-09-06 11:30 | P.PN ---
Subjective Progress Note Date: 09/06/23 Principal diagnosis: Acute DKA I am seeing this patient in new consultation today 09/04/2023 in the intensive care unit for acute diabetic ketoacidosis with new onset diabetes mellitus type 1. Patient is a 22-year-old white female with limited past medical history. Patient states over the last 1 week she's been experiencing URI like symptoms such as fever, chills, cough, rhinorrhea, sore throat. She was treated at a local urgent care clinic with a Z-Uzair. Does not have a PCP. She states that she's been feeling rundown for the last week. Reports some recent weight loss. Admits polyuria and polydipsia. She came back to the emergency room yesterday after experiencing some nausea and vomiting. On arrival to emergency room, she was found to be in a state of diabetic ketoacidosis. Blood glucose 356, serum bicarb less than 5, anion gap unmeasurable, acetone positive. Patient was started on the DKA protocol. Insulin is currently infusing at 6.4 units per hour. Normal saline is infusing at 200 ML's per hour. She is currently lying in bed, on room air, in no acute distress. She has kussmaul respirations. Heart rhythm is sinus tachycardia bedside monitor. Blood pressure is normotensive. Chest x-ray on arrival did not show any acute cardiopulmonary process. Negative for influenza, RSV, COVID-19, group A strep. CBC on arrival showed some leukocytosis with a WBC count of 16.1, hemoglobin 15.8, hematocrit 46.3, platelets 457. Remainder of the BMP on arrival shows a sodium 131, potassium 3.3, chloride 101, BUN 7, creatinine 0.69. Urinalysis pending. C urrently afebrile. Patient will be monitored in the ICU until her DKA resolves. Patient was reevaluated today on 09/05/2023, remains in the ICU, remains on the DKA protocol, her anion gap has closed however her that sugar remains elevated potassium remains low at 2.7, and her bicarb remains low in the range of 15. Patient is having replacement of her potassium, receiving aggressive replacement protocol. Clinically she is feeling better, breathing fine, denies any shortness of breath, denies any nausea vomiting or abdominal pain. Blood sugar remains a bit elevated at 251. Remains on insulin drip. She is receiving insulin at 3.25 units per hour. And she is on D5 4 5 at 1 50 mL per hour. Patient was reevaluated today on 09/06/2023, remains in the ICU, remains on IV fluid in the form of 0.45 at 75 mL/h her bicarb today is 20 to potassium remains a bit low at 3.1. Patient is on room air, not in any distress. Patient is now on Accu-Cheks and subcu insulin, she is also on Levemir insulin. The plan is to transfer the patient out of the ICU today to a regular medical floor, she needs to be taught on the use of insulin, and she needs diabetic teaching, she was definitely need to follow-up with a surgery manager after discharge. From the ICU perspective the patient could definitely be transferred to a regular medical floor and consider discharge planning possibly sometime later today. This will be decided upon by the admitting physician Objective - Vital Signs Vital signs: Vital Signs Temp 98.2 F 09/06/23 08:00 Pulse 99 09/06/23 10:00 Resp 16 09/06/23 10:00 BP 124/86 09/06/23 10:00 Pulse Ox 95 09/06/23 10:00 FiO2 Intake & Output 09/05/23 09/06/23 09/06/23 18:59 06:59 18:59 Intake Total 1550 925 488 Output Total 1525 1440 500 Balance 25 -515 -12 Weight 67.7 kg 69.7 kg 69.7 kg Intake: IV 1450 925 250 D5-0.45% NaCl with KCl 750 40Meq/l 1,000 ml @ 150 mls/hr IV .Q6H40M [facility] Rx# :[id number] Sodium Chloride 0.45% 1, 700 100 000 ml @ 100 mls/hr IV . Q10H [facility] Rx#:[id number] Sodium Chloride 0.45% 1, 825 250 000 ml @ 50 mls/hr IV . Q20H [facility] Rx#:[id number] Intake, IV Titration 100 Amount Potassium Chloride 10 meq 100 In Water For Injection 1 100ml.bag @ 100 mls/hr IVPB Q1HR [facility] Rx#: [id number] Oral 238 Output: Urine 1525 1440 500 Other: Voiding Method Bedside Commode Bedside Commode # Voids 0 1 # Bowel Movements 1 1 1 - Exam Physical Exam: Revealed a 22-year-old female in no distress, on room air Head: Atraumatic normocephalic HEENT:[Neck is supple.] [No neck masses.] [No thyromegaly.] [No JVD.] Chest: [Clear throughout, no crackles, no rhonchi, no wheezes.] Cardiac Exam: [Normal S1 and S2, no S3 gallop, no murmur.] Abdomen: [Soft, nontender, no megaly, no rebound, no guarding, normal bowel sounds.] Extremities: [No clubbing, no edema, no cyanosis.] Neurological Exam: [No focal neurologic deficit.] Psychiatric: Normal mood affect and normal mental status examination Skin: No rashes - Labs CBC & Chem 7: 09/06/23 05:15 09/06/23 05:15 Labs: Abnormal Lab Results - Last 24 Hours (Table) 09/04/23 09/05/23 09/05/23 Range/Units 19:01 11:30 11:55 Hct (34.0-46.0) % Monocytes # (Manual) (0-1.0) k/uL Metamyelocytes # (Man) (0) k/uL Myelocytes # (Manual) (0) k/uL Sodium (137-145) mmol/L Potassium 2.0 L* (3.5-5.1) mmol/L Chloride (98-107) mmol/L Carbon Dioxide (22-30) mmol/L BUN (7-17) mg/dL Creatinine (0.52-1.04) mg/dL Glucose (74-99) mg/dL POC Glucose (mg/dL) 250 H (70-110) mg/dL Phosphorus 1.7 L (2.5-4.5) mg/dL Total Protein (6.3-8.2) g/dL Albumin (3.5-5.0) g/dL 09/05/23 09/05/23 09/05/23 Range/Units 11:55 12:24 16:14 Hct (34.0-46.0) % Monocytes # (Manual) (0-1.0) k/uL Metamyelocytes # (Man) (0) k/uL Myelocytes # (Manual) (0) k/uL Sodium 135 L (137-145) mmol/L Potassium 3.2 L (3.5-5.1) mmol/L Chloride 108 H (98-107) mmol/L Carbon Dioxide 16 L (22-30) mmol/L BUN <2 L (7-17) mg/dL Creatinine 0.50 L (0.52-1.04) mg/dL Glucose 254 H (74-99) mg/dL POC Glucose (mg/dL) 281 H (70-110) mg/dL Phosphorus 1.7 L (2.5-4.5) mg/dL Total Protein (6.3-8.2) g/dL Albumin (3.5-5.0) g/dL 09/05/23 09/05/23 09/05/23 Range/Units 16:14 16:40 19:43 Hct (34.0-46.0) % Monocytes # (Manual) (0-1.0) k/uL Metamyelocytes # (Man) (0) k/uL Myelocytes # (Manual) (0) k/uL Sodium 133 L (137-145) mmol/L Potassium 3.1 L 3.3 L (3.5-5.1) mmol/L Chloride 108 H (98-107) mmol/L Carbon Dioxide 17 L (22-30) mmol/L BUN 3 L (7-17) mg/dL Creatinine (0.52-1.04) mg/dL Glucose 254 H (74-99) mg/dL POC Glucose (mg/dL) 242 H (70-110) mg/dL Phosphorus (2.5-4.5) mg/dL Total Protein (6.3-8.2) g/dL Albumin (3.5-5.0) g/dL 09/05/23 09/06/23 09/06/23 Range/Units 19:49 05:15 05:15 Hct 32.8 L (34.0-46.0) % Monocytes # (Manual) 1.06 H (0-1.0) k/uL Metamyelocytes # (Man) 0.48 H (0) k/uL Myelocytes # (Manual) 0.38 H (0) k/uL Sodium 135 L (137-145) mmol/L Potassium 3.1 L (3.5-5.1) mmol/L Chloride (98-107) mmol/L Carbon Dioxide (22-30) mmol/L BUN 4 L (7-17) mg/dL Creatinine 0.50 L (0.52-1.04) mg/dL Glucose 166 H (74-99) mg/dL POC Glucose (mg/dL) 368 H (70-110) mg/dL Phosphorus (2.5-4.5) mg/dL Total Protein 5.5 L (6.3-8.2) g/dL Albumin 2.7 L (3.5-5.0) g/dL 09/06/23 09/06/23 Range/Units 06:35 11:07 Hct (34.0-46.0) % Monocytes # (Manual) (0-1.0) k/uL Metamyelocytes # (Man) (0) k/uL Myelocytes # (Manual) (0) k/uL Sodium (137-145) mmol/L Potassium (3.5-5.1) mmol/L Chloride (98-107) mmol/L Carbon Dioxide (22-30) mmol/L BUN (7-17) mg/dL Creatinine (0.52-1.04) mg/dL Glucose (74-99) mg/dL POC Glucose (mg/dL) 187 H 325 H (70-110) mg/dL Phosphorus (2.5-4.5) mg/dL Total Protein (6.3-8.2) g/dL Albumin (3.5-5.0) g/dL Assessment and Plan Assessment: Impression: Acute diabetic ketoacidosis, resolved New-onset type 1 diabetes Acute anion gap metabolic acidosis secondary to acute DKA, resolved Recent URI/viral, asymptomatic today. Recommendation: Patient to go on ADA diet Cut down IV fluids Continue replacement of potassium Continue Levemir insulin and Accu-Cheks with coverage using NovoLog insulin. Transfer patient out of the ICU to regular medical floor Consider discharge planning later today or in the next 24 hours as felt appropriate by the admitting physician. Consent definite follow-up with surgery manager Time with Patient: Less than 30
[2023-09-06] MEDS: POTASSIUM CHLORIDE 10 MEQ in WATER FOR INJECTION 1 100ML.BAG IVPB SCH (14:00)
[2023-09-06] MEDS ORDERED: DEXTROSE 50% SYRINGE 50 ML IVP PRN ×2 (14:13)
[2023-09-06 16:22] LABS: Glucose,Whole Blood 261 mg/dL (70-110)
[2023-09-06 20:15] LABS: Glucose,Whole Blood 358 mg/dL (70-110)
--- NOTE | 2023-09-07 05:40 | P.PN ---
Subjective Progress Note Date: 09/06/23 This is a pleasant 22 years old female with no significant past medical history. Patient denies previous history of diabetes. Denies previous hospitalization. She takes only ibuprofen at home. She doesn't follow up with PCP or other physician. She presents because of sore throats for 1 week associated with yellow phlegm and coughing. Yesterday she started vomiting so she decided to come to the [facility] room. She also she was emergency room about 2 days earlier for similar symptoms and she was treatment symptomatically. Before that she received Z-Uzair from urgent care also with no much relief patient this morning she The hospital and it's name of the city [place] but she could not tell the exact date, month, she couldn't remember the year 2022 , she could not remember the name of the current president. Also patient noticed to have hoarseness of voice that started also about one week. She states she has little shortness of breath and for the last 3 days she has mild central chest pain felt like just tightness. Her aunts nonradiating pain. No abdominal pain, no diarrhea, no urinary symptoms, no vaginal discharge, no headache dizziness weakness or numbness. Smoking alcohol or illicit drugs. On admission she was tachycardic and tachypneic saturating 99% on room air. Currently heart rate is around 200 and respiratory rate 18-20. Blood pressure 120/71. Hemoglobin 15.8 and platelet count 457. Venous pH is low 7.0 and venous pCO2 low at 22 and bicarb is low at 6 Not showing low sodium of 131, 135, low potassium 2.4, phosphorus low 0.9. Glucose was elevated with a range of 184-322 Liver enzymes not significantly elevated EKG showing junctional tachycardia with possible right ventricular conduction delay Patient was admitted to the intensive care unit and started on diabetic ketoacidosis treatment with insulin drip per protocol 09/05/2023 Patient is seen in ICU per DKA protocol with new-onset diabetes and maintained on insulin drip with elevated blood sugars. Patient also with significant hypokalemia being replaced per protocol will add additional dosing and re commended follow-up labs. Patient denies any chest pain or shortness of breath does feel congested although breathing fine and reports sore throat is improved. Patient will be given long-acting insulin and then follow DKA protocol and discontinue the drip and will continue with Accu-Cheks before meals and at bedtime as well as 2 AM and start sliding-scale and add pre-meal insulin as needed. Patient with a hemoglobin A1c of 14 will need insulin on discharge and will discuss further with case management along with dietary about discharge planning needs. Patient reports has not been out of the bed much since admission and encouraged increase activity as tolerated. Patient is currently afebrile with no reports of chest pain or palpitations. Follow-up labs ordered for this afternoon as well. 09/06/2023 Patient is seen in follow-up today currently undergoing some education and training regarding blood glucose monitoring and will have nursing educate and demonstrate how to provide subcutaneous injections as patient will be going home on insulin. Prescription provided for testing supplies and glucometer was given. Patient currently does not have a primary care provider and will provide resources as well as patient should follow up with endocrine outpatient. Blood sugars are elevated and uncontrolled and will monitor overnight with possible discharge planning in 24 hours. Patient is a downgrade from the ICU awaiting MedSurg with no bed available at this time. Patient is afebrile at the bases. Her shortness of breath. Review of systems: Constitutional: No reports of fatigue, fever, or chills Cardiovascular: No reports of chest pain or palpitations Respiratory: No reports of shortness of breath or cough, reports congestion GI: No reports of nausea, vomiting, or diarrhea : No reports of dysuria or retention Neurovascular: reports of generalized weakness All medications have been reviewed Physical exam: GENERAL: The patient is alert and oriented x3 Well developed, well nourished. Pale HEENT: Pupils are round and equally reacting to light. EOMI. No scleral icterus. No conjunctival pallor. Normocephalic, atraumatic. No pharyngeal erythema. No thyromegaly. CARDIOVASCULAR: S1 and S2 present. No murmurs, rubs, or gallops. PULMONARY: Chest is clear to auscultation, no wheezing , no crackles. Sinus congestion noted on exam ABDOMEN: Soft, nontender, nondistended, normoactive bowel sounds. No palpable organomegaly. MUSCULOSKELETAL: No joint swelling or deformity. EXTREMITIES: No cyanosis, clubbing, or pedal edema. NEUROLOGICAL: Gross neurological examination did not reveal any focal deficits. SKIN: No rashes. no petechiae. Assessment: Severe pharyngitis with Upper respiratory tract infection, failed outpatient treatment Diabetic ketoacidosis with new onset diabetes mellitus, hemoglobin A1c is 14.0 Acute metabolic acidosis secondary to above , improved Hypokalemia, being replaced Junctional tachycardia with mild chest pain, improved Dehydration Mild metabolic/toxic encephalopathy secondary to DKA DVT prophylaxis GI prophylaxis Full code Plan: Continue with long-acting insulin along with sliding scale as patient's blood sugars continue to be elevated. Nursing staff educating the patient on glucose monitoring and administration of insulin as patient will be going home on insulin regimen. Will increase long-acting and continue to monitor Accu-Cheks before meals and at bedtime i Patient is continued on consistent carb diet and will have dietary educate the patient as well and resources are being provided for discharge Follow-up labs ordered for a.m. Potassium has been replaced and currently 3.6 will continue with daily supplement and follow-up labs Pulmonary area supervisor following and patient has been downgraded out of the ICU awaiting a MedSurg bed Discharge planning regarding diabetes management and testing supplies are being arranged for social work following. Patient to be referred to outpatient resources of primary care provider as well as endocrine Recommend monitoring overnight for better glycemic control and continued education for insulin administration and glucose monitoring Discharge in 24 hours The impression and plan of care has been dictated by Fabiola Herrera, Nurse Practitioner as directed. Dr. Felicia MD I have performed a history and examination and MDM of this patient, discussed the same with the dictator, and agree with the dictator's assessment and plan as written ,documented as a scribe. Based on total visit time, I have performed more than 50% of the visit. Objective - Vital Signs Vital signs: Vital Signs Temp 98.4 F 09/06/23 04:00 Pulse 104 H 09/06/23 07:00 Resp 12 09/06/23 07:00 BP 119/83 09/06/23 07:00 Pulse Ox 99 09/06/23 07:00 FiO2 Intake & Output 09/05/23 09/06/23 09/06/23 18:59 06:59 18:59 Intake Total 1550 925 313 Output Total 1525 1440 Balance 25 -515 313 Weight 67.7 kg 69.7 kg Intake: IV 1450 925 75 D5-0.45% NaCl with KCl 750 40Meq/l 1,000 ml @ 150 mls/hr IV .Q6H40M [facility] Rx# :[id number] Sodium Chloride 0.45% 1, 700 100 000 ml @ 100 mls/hr IV . Q10H [facility] Rx#:[id number] Sodium Chloride 0.45% 1, 825 75 000 ml @ 75 mls/hr IV . [id number] [facility] Rx#:[id number] Intake, IV Titration 100 Amount Potassium Chloride 10 meq 100 In Water For Injection 1 100ml.bag @ 100 mls/hr IVPB Q1HR [facility] Rx#: [id number] Oral 238 Output: Urine 1525 1440 Other: Voiding Method Bedside Commode Bedside Commode # Voids 0 1 # Bowel Movements 1 1 - Labs CBC & Chem 7: 09/06/23 05:15 09/06/23 14:23 Labs: Abnormal Lab Results - Last 24 Hours (Table) 09/04/23 09/05/23 09/05/23 Range/Units 19:01 10:23 10:24 Hct (34.0-46.0) % Monocytes # (Manual) (0-1.0) k/uL Metamyelocytes # (Man) (0) k/uL Myelocytes # (Manual) (0) k/uL Sodium (137-145) mmol/L Potassium 2.0 L* (3.5-5.1) mmol/L Chloride (98-107) mmol/L Carbon Dioxide (22-30) mmol/L BUN (7-17) mg/dL Creatinine (0.52-1.04) mg/dL Glucose (74-99) mg/dL POC Glucose (mg/dL) >600 H >600 H (70-110) mg/dL Phosphorus (2.5-4.5) mg/dL Total Protein (6.3-8.2) g/dL Albumin (3.5-5.0) g/dL 09/05/23 09/05/23 09/05/23 Range/Units 10:25 11:30 11:55 Hct (34.0-46.0) % Monocytes # (Manual) (0-1.0) k/uL Metamyelocytes # (Man) (0) k/uL Myelocytes # (Manual) (0) k/uL Sodium (137-145) mmol/L Potassium (3.5-5.1) mmol/L Chloride (98-107) mmol/L Carbon Dioxide (22-30) mmol/L BUN (7-17) mg/dL Creatinine (0.52-1.04) mg/dL Glucose (74-99) mg/dL POC Glucose (mg/dL) 251 H 250 H (70-110) mg/dL Phosphorus 1.7 L (2.5-4.5) mg/dL Total Protein (6.3-8.2) g/dL Albumin (3.5-5.0) g/dL 09/05/23 09/05/23 09/05/23 Range/Units 11:55 12:24 16:14 Hct (34.0-46.0) % Monocytes # (Manual) (0-1.0) k/uL Metamyelocytes # (Man) (0) k/uL Myelocytes # (Manual) (0) k/uL Sodium 135 L (137-145) mmol/L Potassium 3.2 L (3.5-5.1) mmol/L Chloride 108 H (98-107) mmol/L Carbon Dioxide 16 L (22-30) mmol/L BUN <2 L (7-17) mg/dL Creatinine 0.50 L (0.52-1.04) mg/dL Glucose 254 H (74-99) mg/dL POC Glucose (mg/dL) 281 H (70-110) mg/dL Phosphorus 1.7 L (2.5-4.5) mg/dL Total Protein (6.3-8.2) g/dL Albumin (3.5-5.0) g/dL 09/05/23 09/05/23 09/05/23 Range/Units 16:14 16:40 19:43 Hct (34.0-46.0) % Monocytes # (Manual) (0-1.0) k/uL Metamyelocytes # (Man) (0) k/uL Myelocytes # (Manual) (0) k/uL Sodium 133 L (137-145) mmol/L Potassium 3.1 L 3.3 L (3.5-5.1) mmol/L Chloride 108 H (98-107) mmol/L Carbon Dioxide 17 L (22-30) mmol/L BUN 3 L (7-17) mg/dL Creatinine (0.52-1.04) mg/dL Glucose 254 H (74-99) mg/dL POC Glucose (mg/dL) 242 H (70-110) mg/dL Phosphorus (2.5-4.5) mg/dL Total Protein (6.3-8.2) g/dL Albumin (3.5-5.0) g/dL 09/05/23 09/06/23 09/06/23 Range/Units 19:49 05:15 05:15 Hct 32.8 L (34.0-46.0) % Monocytes # (Manual) 1.06 H (0-1.0) k/uL Metamyelocytes # (Man) 0.48 H (0) k/uL Myelocytes # (Manual) 0.38 H (0) k/uL Sodium 135 L (137-145) mmol/L Potassium 3.1 L (3.5-5.1) mmol/L Chloride (98-107) mmol/L Carbon Dioxide (22-30) mmol/L BUN 4 L (7-17) mg/dL Creatinine 0.50 L (0.52-1.04) mg/dL Glucose 166 H (74-99) mg/dL POC Glucose (mg/dL) 368 H (70-110) mg/dL Phosphorus (2.5-4.5) mg/dL Total Protein 5.5 L (6.3-8.2) g/dL Albumin 2.7 L (3.5-5.0) g/dL 09/06/23 Range/Units 06:35 Hct (34.0-46.0) % Monocytes # (Manual) (0-1.0) k/uL Metamyelocytes # (Man) (0) k/uL Myelocytes # (Manual) (0) k/uL Sodium (137-145) mmol/L Potassium (3.5-5.1) mmol/L Chloride (98-107) mmol/L Carbon Dioxide (22-30) mmol/L BUN (7-17) mg/dL Creatinine (0.52-1.04) mg/dL Glucose (74-99) mg/dL POC Glucose (mg/dL) 187 H (70-110) mg/dL Phosphorus (2.5-4.5) mg/dL Total Protein (6.3-8.2) g/dL Albumin (3.5-5.0) g/dL
[2023-09-07 06:27] LABS: African American GFR (CKD) >90 (>60 ml/min/1.73 sqM); Anion Gap 9 mmol/L; Blood Urea Nitrogen 10 mg/dL (7-17); Calcium 9.3 mg/dL (8.4-10.2); Carbon Dioxide 26 mmol/L (22-30); Chloride 100 mmol/L (98-107); Glucose 241 mg/dL (74-99); Non-African American GFR(CKD) >90 (>60 ml/min/1.73 sqM); Potassium 3.7 mmol/L (3.5-5.1); Sodium 135 mmol/L (137-145)
[2023-09-07 06:37] LABS: HCT 32.7 % (34.0-46.0); HGB 11.2 gm/dL (11.4-16.0); MCH 28.5 pg (25.0-35.0); MCHC 34.2 g/dL (31.0-37.0); MCV 83.2 fL (80.0-100.0); Mean Platelet Volume 7.1; Platelet Count 377 k/uL (150-450); RBC 3.92 m/uL (3.80-5.40); RDW 15.2 % (11.5-15.5); WBC 10.4 k/uL (3.8-10.6)
[2023-09-07 06:53] LABS: Glucose,Whole Blood 285 mg/dL (70-110)
[2023-09-07] MEDS ORDERED: INSULIN DETEMIR (LEVEMIR) 100 UNIT/ML SYR SQ SCH (07:00)
[2023-09-07] MEDS: INSULIN ASPART (NovoLOG) 100 UNIT/ML VIAL SQ SCH ×2 (07:54→12:19)
[2023-09-07] MEDS: POTASSIUM CHLORIDE ER 20 MEQ TAB.ER PO SCH (09:32)
[2023-09-07] MEDS: FAMOTIDINE 20 MG/2 ML VIAL IV SCH (09:32)
[2023-09-07] MEDS: HEPARIN SODIUM,PORCINE 5,000 UNIT/ML 1 ML VIAL SQ SCH (09:32)
[2023-09-07 10:16] VITALS: BP 124/88; RESP 18; TEMP 98.4
--- NOTE | 2023-09-07 11:00 | P.PN ---
Subjective Progress Note Date: 09/07/23 Principal diagnosis: Acute DKA I am seeing this patient in new consultation today 09/04/2023 in the intensive care unit for acute diabetic ketoacidosis with new onset diabetes mellitus type 1. Patient is a 22-year-old white female with limited past medical history. Patient states over the last 1 week she's been experiencing URI like symptoms such as fever, chills, cough, rhinorrhea, sore throat. She was treated at a local urgent care clinic with a Z-Uzair. Does not have a PCP. She states that she's been feeling rundown for the last week. Reports some recent weight loss. Admits polyuria and polydipsia. She came back to the emergency room yesterday after experiencing some nausea and vomiting. On arrival to emergency room, she was found to be in a state of diabetic ketoacidosis. Blood glucose 356, serum bicarb less than 5, anion gap unmeasurable, acetone positive. Patient was started on the DKA protocol. Insulin is currently infusing at 6.4 units per hour. Normal saline is infusing at 200 ML's per hour. She is currently lying in bed, on room air, in no acute distress. She has kussmaul respirations. Heart rhythm is sinus tachycardia bedside monitor. Blood pressure is normotensive. Chest x-ray on arrival did not show any acute cardiopulmonary process. Negative for influenza, RSV, COVID-19, group A strep. CBC on arrival showed some leukocytosis with a WBC count of 16.1, hemoglobin 15.8, hematocrit 46.3, platelets 457. Remainder of the BMP on arrival shows a sodium 131, potassium 3.3, chloride 101, BUN 7, creatinine 0.69. Urinalysis pending. C urrently afebrile. Patient will be monitored in the ICU until her DKA resolves. Patient was reevaluated today on 09/05/2023, remains in the ICU, remains on the DKA protocol, her anion gap has closed however her that sugar remains elevated potassium remains low at 2.7, and her bicarb remains low in the range of 15. Patient is having replacement of her potassium, receiving aggressive replacement protocol. Clinically she is feeling better, breathing fine, denies any shortness of breath, denies any nausea vomiting or abdominal pain. Blood sugar remains a bit elevated at 251. Remains on insulin drip. She is receiving insulin at 3.25 units per hour. And she is on D5 4 5 at 1 50 mL per hour. Patient was reevaluated today on 09/06/2023, remains in the ICU, remains on IV fluid in the form of 0.45 at 75 mL/h her bicarb today is 20 to potassium remains a bit low at 3.1. Patient is on room air, not in any distress. Patient is now on Accu-Cheks and subcu insulin, she is also on Levemir insulin. The plan is to transfer the patient out of the ICU today to a regular medical floor, she needs to be taught on the use of insulin, and she needs diabetic teaching, she was definitely need to follow-up with a dining room host after discharge. From the ICU perspective the patient could definitely be transferred to a regular medical floor and consider discharge planning possibly sometime later today. This will be decided upon by the admitting physician Reevaluated today on 10/04/23, patient is doing great, she is an overflow in the ICU. Patient is now on Levemir insulin and Accu-Cheks, doing well, relatively asymptomatic sugars are still running in the 200 range DKA has completely res olved, potassium has corrected, bicarbonate is corrected anion gap has closed. Objective - Vital Signs Vital signs: Vital Signs Temp 98.4 F 09/07/23 08:00 Pulse 95 09/07/23 08:00 Resp 18 09/07/23 08:00 BP 124/88 09/07/23 08:00 Pulse Ox 96 09/07/23 08:00 FiO2 Intake & Output 09/06/23 09/07/23 09/07/23 18:59 06:59 18:59 Intake Total 828 Output Total 500 Balance 328 Weight 69.7 kg Intake: IV 350 Sodium Chloride 0.45% 1, 350 000 ml @ 50 mls/hr IV . Q20H [facility] Rx#:[id number] Oral 478 Output: Urine 500 Other: Voiding Method Toilet # Voids 4 3 # Bowel Movements 1 - Exam Physical Exam: Revealed a 22-year-old female in no distress, on room air Head: Atraumatic normocephalic HEENT:[Neck is supple.] [No neck masses.] [No thyromegaly.] [No JVD.] Chest: [Clear throughout, no crackles, no rhonchi, no wheezes.] Cardiac Exam: [Normal S1 and S2, no S3 gallop, no murmur.] Abdomen: [Soft, nontender, no megaly, no rebound, no guarding, normal bowel sounds.] Extremities: [No clubbing, no edema, no cyanosis.] Neurological Exam: [No focal neurologic deficit.] Psychiatric: Normal mood affect and normal mental status examination Skin: No rashes - Labs CBC & Chem 7: 09/07/23 05:34 09/07/23 05:34 Labs: Abnormal Lab Results - Last 24 Hours (Table) 09/06/23 09/06/23 09/06/23 Range/Units 11:07 16:21 20:13 Hgb (11.4-16.0) gm/dL Hct (34.0-46.0) % Sodium (137-145) mmol/L Creatinine (0.52-1.04) mg/dL Glucose (74-99) mg/dL POC Glucose (mg/dL) 325 H 261 H 358 H (70-110) mg/dL 09/07/23 09/07/23 09/07/23 Range/Units 05:34 05:34 06:51 Hgb 11.2 L (11.4-16.0) gm/dL Hct 32.7 L (34.0-46.0) % Sodium 135 L (137-145) mmol/L Creatinine 0.50 L (0.52-1.04) mg/dL Glucose 241 H (74-99) mg/dL POC Glucose (mg/dL) 285 H (70-110) mg/dL Assessment and Plan Assessment: Impression: Acute diabetic ketoacidosis, resolved New-onset type 1 diabetes Acute anion gap metabolic acidosis secondary to acute DKA, resolved Recent URI/viral, asymptomatic today. Recommendation: Patient is cleared for discharge from our perspective Needs to have follow-up with dining room host. Will sign off and see the patient when necessary Time with Patient: Less than 30
[2023-09-07 12:13] LABS: Glucose,Whole Blood 301 mg/dL (70-110)
[2023-09-07 15:37] VITALS: PULSE 94
--- NOTE | 2023-09-09 06:48 | P.DS ---
Providers Date of admission: 09/04/23 00:24 Expected date of discharge: 09/07/23 Attending physician: Abby Allison Consults: 09/04/23 00:27 Consult Physician Routine Consulting Provider: Lorenzo Purvis Consult Reason/Comments: Diabetic ketoacidosis Do you want consulting provider notified?: Yes Primary care physician: Stated None Hospital Course: Final diagnosis Severe pharyngitis with Upper respiratory tract infection, failed outpatient treatment Diabetic ketoacidosis with new onset diabetes mellitus, hemoglobin A1c is 14.0 Acute metabolic acidosis secondary to above , improved Hypokalemia, improved Junctional tachycardia with mild chest pain, improved Dehydration Mild metabolic/toxic encephalopathy secondary to DKA DVT prophylaxis GI prophylaxis Full code Discharge disposition Patient is being discharged in a stable condition with guarded prognosis to home . Patient will follow-up with Dr. Hoffman in the outpatient setting upon discharge. Patient is to continue with insulins and close outpatient follow-up with endocrine as scheduled. Total time taken is greater than 35 minutes. Hospital course This is a 22-year-old female who was recently admitted with DKA with new-onset diabetes. Patient had been in the ER for pharyngitis and upper respiratory tract infection started on antibiotics although came back at a later with significant weakness and feeling unwell found to be in DKA. Patient's hemoglobin A1c is 14 and will be requiring insulins on discharge. Patient also provided resources for outpatient diabetes education and given a glucometer along with testing supplies. Strongly encourage patient to establish with a primary care provider as well as following up with endocrine for further management. Patient was given education and instructed on how to self inject and perform glucose testing. Patient will be discharged home with guarded prognosis due to new-onset diabetes and difficulty in managing blood sugars. Please refer to other consultation notes for further HPI. Patient has been cleared by consultations. Currently no reports of chest pain, shortness of breath, or palpitations. Patient is afebrile. No reports of nausea or vomiting and patient is tolerating diet. Patient will be discharged home today. Physical exam: Gen: This is a 22-year-old female who is awake, alert and oriented 3, well- developed, well-nourished HEENT: Head is atraumatic, normocephalic. Pupils equal, round. Sclerae is anicteric. NECK: Supple. No JVD. No lymphadenopathy. No thyromegaly. LUNGS: Clear to auscultation. No wheezes or rhonchi. No intercostal retractions. HEART: Regular rate and rhythm. No murmur. ABDOMEN: Soft. Bowel sounds are present. No masses. No tenderness. EXTREMITIES: No pedal edema. No calf tenderness. NEUROLOGICAL: Patient is awake, alert and oriented x3. Cranial nerves 2 through 12 are grossly intact. Please refer to medication reconciliation sheet for a list of medications. The impression and plan of care has been dictated by Fabiola Herrera, Nurse Practitioner as directed. Dr. Felicia MD I have performed a history and examination and MDM of this patient, discussed the same with the dictator, and agree with the dictator's assessment and plan as written ,documented as a scribe. Based on total visit time, I have performed more than 50% of the visit. Patient Condition at Discharge: Fair Plan - Discharge Summary Discharge Rx Participant: Yes New Discharge Prescriptions: New Potassium Chloride ER [K-Dur 20] 20 meq PO DAILY #30 tab Insulin Glargine,Hum.rec.anlog [Lantus Solostar Pen] 35 units SQ HS 30 Days #6 each INSULIN ASPART (NovoLOG) [NovoLOG (formulary)] 6 unit SQ ACHS 30 Days #5 each Discontinued Azithromycin [Zithromax Tri-Uzair (3 tabs)] 500 mg PO DAILY Ofloxacin 0.3% Otic Soln [Floxin 0.3% Otic Soln] 5 drops LEFT EAR BID Tobramycin 0.3% Ophth Soln [Tobrex 0.3% Ophth Soln] 1 drop BOTH EYES 5XD Discharge Medication List INSULIN ASPART (NovoLOG) [NovoLOG (formulary)] 6 unit SQ ACHS 30 Days #5 each 1 11/06/22 [Rx] Insulin Glargine,Hum.rec.anlog [Lantus Solostar Pen] 35 units SQ HS 30 Days #6 each 09/07/23 [Rx] Potassium Chloride ER [K-Dur 20] 20 meq PO DAILY #30 tab 09/07/23 [Rx] Follow up Appointment(s)/Referral(s): Kenneth Ayala MD [REFERRING] - 1 Week Elena Hoffman MD [STAFF PHYSICIAN] - 1-2 Days Patient Instructions/Handouts: Diabetic Ketoacidosis (DC), Foot Care for People with Diabetes (ED), Type 1 Diabetes in Adults: New Diagnosis (DC), What is Insulin (ED), How to Give an Insulin Injection (ED), Insulin Pens (DC), Diabetic Foot Ulcers (ED), Diabetes and Your Skin (ED), Diabetes and Your Mouth (ED), What to Do if Your Blood Sugar is Low (DC), Diabetes and Exercise (DC), How to Check your Blood Sugar (GEN) Activity/Diet/Wound Care/Special Instructions: Patient to follow up with local pharmacy of her choice to obtain additional testing supplies. Patient provided list of local physicians. Recommend to follow up with outpatient diabetes education offered through [facility] [email or web address] [phone] [address] Follow-up with primary care provider to establish Follow-up with endocrine outpatient Continue to monitor blood sugars before meals and at bedtime and keep a diary of all readings for follow-up NovoLog sliding scale 0-150 equals 0 units 151-200 equals 2 units 201-250 equals 4 units 251-300 equals 6 units 301-350 equals 8 units 351-400 equals 10 units Please notify provider if blood sugar is 400 or above If blood sugar is 100 or less please hold all insulins Discharge/Stand Alone Forms: Who Do I Call?, Community Resources, Area PCPs Discharge Disposition: HOME SELF-CARE
--- NOTE | 2023-09-11 16:18 | CDI ---
Documentation Clarification Form Date: 09/11/2023 03:49:34 PM From: Judi Paul RN, CCDS Email: [email or web address] Admit Date: 09/04/2023 12:24:00 AM Patient Name: Kaylan Yi Visit Number: [id number] Discharge Date: 09/07/2023 02:30:00 PM ATTENTION: The Clinical Documentation Specialists (CDI) and [facility] Coding Staff appreciate your assistance in clarifying documentation. Please respond to the clarification below the line at the bottom and electronically sign. The CDI & [facility] Coding staff will review the response and follow-up if needed. Please note: Queries are made part of the Legal Health Record. If you have any questions, please contact the author of this message via ITS. Dr. Harpreet Duarte Your patient had DKA, leukocytosis and tachycardia. Based on this information and the findings below, is there an additional diagnosis that is clinically appropriate for this patient? History/Risk Factors: 22 year old with no significant past medical history. Presented with nausea, vomiting and URI like symptoms. Admitted with new onset DM type 1 and DKA. Clinical Indicators: H&P: "patient could not tell the exact date, month and she couldn't remember the year 2022. She could not remember the name of the current president. On admission she was tachycardic and tachypneic. "Diabetic ketoacidosis. Acute metabolic acidosis secondary to above. Mild metabolic/toxic encephalopathy." 09/04 Pulmonary consult: "Acute diabetic ketoacidosis. Metabolic anion gap acidosis, secondary to above. New-onset type 1 diabetes mellitus. Leukocytosis, likely reactive DKA." 09/03-09/07 WBC 16.1-11.9-9.6-10.4 09/03 VBG pH 7.00, pCO2 22, HCO3 6 09/03 Glucose 356, Na 131 09/04-09/07 K+ 2.0-3.7 09/03 Acetone + 09/03 HR 116, RR 22-26 with Kussmaul respirations Treatment: Insulin drip titrated 09/04-09/06; 0.9 NS IV 1L at 500mL/hr; 0.45NS @50mL/hr 09/05-09/07; D5.45 w 40meq KCL @150mL/hr 09/04-09/06; KCL 10meq IV x 7 bags total and KCL 20meq po Q1H x8 doses Is there an additional diagnosis that is clinically appropriate for this patient? [ x] SIRS due to DKA with toxic/metabolic encephalopathy [ ] Other, please specify [ ] Unable to determine SIRS Criteria: 2 or more of the following may indicate SIRS -Temperature < 96.8F(36C) or > 101.0F (38.3C) -Heart Rate > 90 bpm -Respiratory Rate > 20 breaths/min or PaCO2 < 32 mmHg -White Blood Cell Count > 12,000 or < 4,000 cells/mm3 or > 10% bands MTDD
== END 2023-09-07 14:30 | disposition home or self-care (01) | DRG 420 ==
LOC: EC 19:39 → 2SICU 09-04 00:24
PROVIDERS: ADMIT Hospitalist; ATTEND Hospitalist
DX: E10.10 Type 1 diabetes mellitus with ketoacidosis without coma (principal); G92.8 Other toxic encephalopathy; R65.11 Systemic inflammatory response syndrome (SIRS) of non-infectious origin with acute organ dysfunction; I47.19 Other supraventricular tachycardia; J02.8 Acute pharyngitis due to other specified organisms; E86.0 Dehydration; E87.6 Hypokalemia; I45.9 Conduction disorder, unspecified; Z20.822 Contact with and (suspected) exposure to COVID-19; Z87.891 Personal history of nicotine dependence; Z28.310 Unvaccinated for COVID-19; Z88.0 Allergy status to penicillin; Z88.1 Allergy status to other antibiotic agents
CPT/HCPCS: 36415; 71046; 80048; 80051; 80053; 81001; 81025; 82009; 82565; 82803; 82947; 83036; 83735; 84100; 84132; 84145; 84443; 84520; 84703; 85025; 85027; 86140; 87636; 87651; 93005; 96361; 96365; 99285

== ENCOUNTER 2024-06-18 15:23 | Emergency (ER) | payer BC ==
[2024-06-18] MEDS ORDERED: ONDANSETRON 4 MG/2 ML VIAL ONE (16:46)
--- NOTE | 2024-07-22 15:56 | US ---
Site ID [facility] Kaylan Ordoñez ID [id number] Age/Gender: 23Y, O Order # N/A Procedure US OB <= 14 wk fetus Date 06/18/2024 6:57:00 PM EXAMINATION TYPE: Transabdominal DATE OF EXAM: 07/02/2024 12:44 AM COMPARISON: None, please note PACS Production downtime occurred during the radiologist interpretation of these images with limited priors/reports. CLINICAL INDICATION: 23 year old with history of vaginal bleeding, spotting. No pain; EXAM PERFORMED: Transabdominal (TA) EXAM MEASUREMENTS: GESTATIONAL AGE / DATING Dates by LMP: 05/09/2024 Dates by Current Scan for: No IUP seen at this time MATERNAL ANATOMY Uterus: 7.5 x 3.9 x 5.3 - endometrium measures 1.2 cm in thickness. Right Ovary: 2.5 x 1.9 x 2.4 cm-within normal limits Left Ovary: 2.0 x 1.8 x 2.0 cm-within normal limits Post CDS / Adnexa: Within normal limits Presence of free fluid: No GESTATION / SURVEY IUP: No IUP seen at this time IMPRESSION: No evidence of intrauterine gestational sac, correlate with B-hCG. If positive, this could represent early , ectopic or spontaneous . Follow up pelvic ultrasound in 5-7 days a nd serial beta hCG studies are recommended.
== END 2024-06-18 20:32 | disposition home or self-care (01) ==
LOC: EC 15:23
CPT/HCPCS: 76801; 86850; 86900; 86901; 87086; 96374; 99284

== ENCOUNTER 2024-08-25 18:04 | Emergency (ER) | payer BC ==
--- NOTE | 2024-08-25 18:27 | ED ---
General Adult HPI - General Source: patient, RN notes reviewed Mode of arrival: ambulatory Limitations: no limitations <Jeanne Jorge - Last Filed: 08/25/24 18:26> <Jess Boyle - Last Filed: 08/29/24 13:52> - General Chief complaint: Chest Pain Stated complaint: Chest pain Time Seen by Provider: 08/25/24 18:20 - History of Present Illness Initial comments: Quick [id number] female with a history of type 1 diabetes on insulin pump presents emergency department chief complaint of stabbing chest pain with radiation to the left arm that has been progressively worse over the past few hours. She Dors is nausea as well. (Jeanne Jorge) 23-year-old female with past medical history of diabetes on insulin pump who presents emergency department with chest pain. States that she has stabbing pain over the left side of her chest which radiates to her left arm. Pain is worse with palpation. She has associated nausea. Does not have any history of cardiac disease. No fevers, chills or cough. Denies pleuritic chest pain. No history of DVT or PE. No calf pain or swelling. No other alleviating, precipitating or modifying factors (Jess Boyle) - Related Data Home Medications Medication Instructions Recorded Confirmed Insulin Aspart (For Pump) [NovoLOG 0.01 unit SQ-PUMP CONTINUOUS 08/25/24 08/25/24 (For Pump)] Insulin Glargine,Hum.rec.anlog 35 units SQ HS PRN 08/25/24 08/25/24 [Lantus Solostar Pen] Allergies Allergy/AdvReac Type Severity Reaction Status Date / Time cefprozil [From Cefzil] AdvReac Unknown Verified 08/25/24 20:36 Childhood Penicillins AdvReac Unknown Verified 08/25/24 20:36 Childhood Review of Systems ROS Other: All systems not noted in ROS Statement are negative. <Jeanne Jorge - Last Filed: 08/25/24 18:26> ROS Other: All systems not noted in ROS Statement are negative. <Jess Boyle - Last Filed: 08/29/24 13:52> ROS Statement: Those systems with pertinent positive or pertinent negative responses have been documented in the HPI. Past Medical History Past Medical History: Diabetes Mellitus Additional Past Medical History / Comment(s): DM I History of Any Multi-Drug Resistant Organisms: None Reported Past Surgical History: No Surgical Hx Reported, Ear Surgery Past Anesthesia/Blood Transfusion Reactions: No Reported Reaction Past Psychological History: No Psychological Hx Reported Smoking Status: Never smoker Past Alcohol Use History: Occasional Past Drug Use History: None Reported <StielerJeanne - Last Filed: 08/25/24 18:26> General Exam Limitations: no limitations <Stieler,Jeanne - Last Filed: 08/25/24 18:26> General appearance: alert, in no apparent distress Head exam: Present: atraumatic, normocephalic, normal inspection Eye exam: Present: normal appearance, PERRL, EOMI. Absent: scleral icterus, conjunctival injection, periorbital swelling ENT exam: Present: normal exam, mucous membranes moist Neck exam: Present: normal inspection. Absent: tenderness, meningismus, lymphadenopathy Respiratory exam: Present: normal lung sounds bilaterally. Absent: respiratory distress, wheezes, rales, rhonchi, stridor Cardiovascular Exam: Present: regular rate, normal rhythm, normal heart sounds. Absent: systolic murmur, diastolic murmur, rubs, gallop, clicks GI/Abdominal exam: Present: soft, normal bowel sounds. Absent: distended, tenderness, guarding, rebound, rigid Extremities exam: Present: normal inspection, full ROM, normal capillary refill. Absent: tenderness, pedal edema, joint swelling, calf tenderness Back exam: Present: normal inspection Neurological exam: Present: alert, oriented X3, CN II-XII intact Psychiatric exam: Present: normal affect, normal mood Skin exam: Present: warm, dry, intact, normal color. Absent: rash <Jess Boyle - Last Filed: 08/29/24 13:52> - General Exam Comments Initial Comments: Visual Physical Exam Vital signs reviewed General: Well-appearing, nontoxic, no acute distress. Head: Normocephalic, atraumatic Eyes: PERRLA, EOMI ENT: Airway patent Chest: Nonlabored breathing Skin: No visual rash, normal skin tone Neuro: Alert and oriented 3 Musculoskeletal: No gross abnormalities (Stieler,Jeanne) Course Vital Signs 08/25/24 08/25/24 18:07 22:42 Temperature 97.8 F 98.0 F Pulse Rate 96 61 Respiratory 16 16 Rate Blood Pressure 118/83 101/65 O2 Sat by Pulse 100 99 Oximetry Medical Decision Making <Jeanne Jorge - Last Filed: 08/25/24 18:26> - Lab Data Result diagrams: 08/25/24 18:39 08/25/24 18:39 <Jess Boyle - Last Filed: 08/29/24 13:52> - Medical Decision Making I completed the quick note portion of this chart signed Jeanne Jorge PA-C (Jeanne Jorge) Was pt. sent in by a medical professional or institution ([facility], [employer], urgent care, hospital, or detention...) When possible be specific @ -No Did you speak to anyone other than the patient for history (EMS, parent, family, police, friend...)? What history was obtained from this source @ -No Did you review nursing and triage notes (agree or disagree)? Why? @ -I reviewed and agree with nursing and triage notes Were old charts reviewed (outside hosp., previous admission, EMS record, old EKG, old radiological studies, urgent care reports/EKG's, detention records)? Report findings @ -No old charts were reviewed Differential Diagnosis (chest pain, altered mental status, abdominal pain women, abdominal pain men, vaginal bleeding, weakness, fever, dyspnea, syncope, headache, dizziness, GI bleed, back pain, seizure, CVA, palpatations, mental health, musculoskeletal)? @ -Differential Chest Pain: Stable Angina, Unstable Angina, STEMI, NSTEMI Aortic Dissection, Pneumothorax, Musculoskeletal, Esophageal Spasm GERD, Cholecystitis, Pancreatitis, Zoster, this is not meant to be an all-inclusive list. EKG interpreted by me (3pts min.). @ -Yes and demonstrates sinus rhythm with rate of 75. HI interval 149. QRS 95. QTc 404. No acute ST segment elevations or depressions X-rays interpreted by me (1pt min.). @ -[Yes and demonstrates no acute process CT interpreted by me (1pt min.). @ -None done U/S interpreted by me (1pt. min.). @ -None done What testing was considered but not performed or refused? (CT, X-rays, U/S, labs)? Why? @ -None What meds were considered but not given or refused? Why? @ -None Did you discuss the management of the patient with other professionals ( professionals i.e. , PA, [employer], lab, RT, psych nurse, social sciences chair, order dispatcher chief, teacher, radio electronics officer, case briefer)? Give summary @ -No Was smoking cessation discussed for >3mins.? @ -No Was critical care preformed (if so, how long)? @ -No Were there social determinants of health that impacted care today? How? (Homelessness, low income, unemployed, alcoholism, drug addiction, transportation, low edu. Level, literacy, decrease access to med. care, [place] [facility], rehab)? @ -No Was there de-escalation of care discussed even if they declined (Discuss DNR or withdrawal of care, Hospice)? DNR status @ -No What co-morbidities impacted this encounter? (DM, HTN, Smoking, COPD, CAD, Cancer, CVA, ARF, Chemo, Hep., AIDS, mental health diagnosis, sleep apnea, morbid obesity)? @ -Type 1 diabetes Was patient admitted / discharged? Hospital course, mention meds given and route, prescriptions, significant lab abnormalities, going to OR and other pertinent info. @ -Upon arrival patient seen and evaluated in [place] [id number]. Thorough history and physical exam was performed. Patient has a twelve-lead EKG obtained. Laboratory studies are conducted. Chest x-ray was performed. Discussed results with the patient. She was agreeable to stay for second troponin which was performed and also negative. Discussed the differential and treatment options. Patient eager to go home at this time. Recommend that she follow-up with her primary care doctor for stress test and echo. Return for any new or worsening symptoms. Patient agreeable plan was discharged in stable condition Undiagnosed new problem with uncertain prognosis? @ -Yes Drug Therapy requiring intensive monitoring for toxicity (Heparin, Nitro, Insulin, Cardizem)? @ -No Were any procedures done? @ -No Diagnosis/symptom? @ -Acute chest pain Acute, or Chronic, or Acute on Chronic? @ -Acute Uncomplicated (without systemic symptoms) or Complicated (systemic symptoms)? @ -Complicated Side effects of treatment? @ -None Exacerbation, Progression, or Severe Exacerbation? @ -No Poses a threat to life or bodily function? How? (Chest pain, [place], [place], pneumonia, PE, COPD, DKA, ARF, appy, cholecystitis, CVA, Diverticulitis, Homicidal, [place], threat to staff... and all critical care pts) @ -No (Jess Boyle) - Lab Data Lab Results 08/25/24 08/25/24 08/25/24 Range/Units 18:39 18:39 18:39 WBC 10.7 H (3.8-10.6) k/uL RBC 4.90 (3.80-5.40) m/uL Hgb 14.2 (11.4-16.0) gm/dL Hct 43.5 (34.0-46.0) % MCV 88.7 (80.0-100.0) fL MCH 29.0 (25.0-35.0) pg MCHC 32.7 (31.0-37.0) g/dL RDW 12.3 (11.5-15.5) % Plt Count 399 (150-450) k/uL MPV 6.8 Neutrophils % 68 % Lymphocytes % 23 % Monocytes % 5 % Eosinophils % 1 % Basophils % 0 % Neutrophils # 7.3 (1.3-7.7) k/uL Lymphocytes # 2.4 (1.0-4.8) k/uL Monocytes # 0.6 (0-1.0) k/uL Eosinophils # 0.1 (0-0.7) k/uL Basophils # 0.0 (0-0.2) k/uL PT 10.3 (10.0-12.5) sec INR 0.9 (<1.2) APTT 23.4 (22.0-30.0) sec D-Dimer (<0.60) mg/L FEU Sodium 142 (137-145) mmol/L Potassium 3.6 (3.5-5.1) mmol/L Chloride 104 (98-107) mmol/L Carbon Dioxide 29 (22-30) mmol/L Anion Gap 9 mmol/L BUN 22 H (7-17) mg/dL Creatinine 0.63 (0.52-1.04) mg/dL Est GFR (CKD-EPI)AfAm >90 (>60 ml/min/1.73 sqM) Est GFR (CKD-EPI)NonAf >90 (>60 ml/min/1.73 sqM) Glucose 88 (74-99) mg/dL Calcium 9.8 (8.4-10.2) mg/dL Magnesium 1.7 (1.6-2.3) mg/dL Total Bilirubin 1.0 (0.2-1.3) mg/dL AST 23 (14-36) U/L ALT 16 (4-34) U/L Alkaline Phosphatase 63 (38-126) U/L Troponin I (0.000-0.034) ng/mL Total Protein 7.7 (6.3-8.2) g/dL Albumin 4.8 (3.5-5.0) g/dL Lipase 44 (23-300) U/L Urine Color Urine Appearance (Clear) Urine pH (5.0-8.0) Ur Specific [place] (1.001-1.035) Urine Protein (Negative) Urine Glucose (UA) (Negative) Urine Ketones (Negative) Urine Blood (Negative) Urine Nitrite (Negative) Urine Bilirubin (Negative) Urine Urobilinogen (<2.0) mg/dL Ur Leukocyte Esterase (Negative) Urine RBC (0-5) /hpf Urine WBC (0-5) /hpf Ur Squamous Epith Cells (0-4) /hpf Hyaline Casts (0-2) /lpf Urine Mucus (None) /hpf Urine HCG, Qual (Not Detectd) Acetone, Qual Negative (Negative) 08/25/24 08/25/24 08/25/24 Range/Units 18:39 18:39 20:03 WBC (3.8-10.6) k/uL RBC (3.80-5.40) m/uL Hgb (11.4-16.0) gm/dL Hct (34.0-46.0) % MCV (80.0-100.0) fL MCH (25.0-35.0) pg MCHC (31.0-37.0) g/dL RDW (11.5-15.5) % Plt Count (150-450) k/uL MPV Neutrophils % % Lymphocytes % % Monocytes % % Eosinophils % % Basophils % % Neutrophils # (1.3-7.7) k/uL Lymphocytes # (1.0-4.8) k/uL Monocytes # (0-1.0) k/uL Eosinophils # (0-0.7) k/uL Basophils # (0-0.2) k/uL PT (10.0-12.5) sec INR (<1.2) APTT (22.0-30.0) sec D-Dimer 0.24 (<0.60) mg/L FEU Sodium (137-145) mmol/L Potassium (3.5-5.1) mmol/L Chloride (98-107) mmol/L Carbon Dioxide (22-30) mmol/L Anion Gap mmol/L BUN (7-17) mg/dL Creatinine (0.52-1.04) mg/dL Est GFR (CKD-EPI)AfAm (>60 ml/min/1.73 sqM) Est GFR (CKD-EPI)NonAf (>60 ml/min/1.73 sqM) Glucose (74-99) mg/dL Calcium (8.4-10.2) mg/dL Magnesium (1.6-2.3) mg/dL Total Bilirubin (0.2-1.3) mg/dL AST (14-36) U/L ALT (4-34) U/L Alkaline Phosphatase (38-126) U/L Troponin I <0.012 (0.000-0.034) ng/mL Total Protein (6.3-8.2) g/dL Albumin (3.5-5.0) g/dL Lipase (23-300) U/L Urine Color Yellow Urine Appearance Cloudy H (Clear) Urine pH 6.5 (5.0-8.0) Ur Specific [place] 1.033 (1.001-1.035) Urine Protein Trace H (Negative) Urine Glucose (UA) Negative (Negative) Urine Ketones Negative (Negative) Urine Blood Small H (Negative) Urine Nitrite Negative (Negative) Urine Bilirubin Negative (Negative) Urine Urobilinogen <2.0 (<2.0) mg/dL Ur Leukocyte Esterase Negative (Negative) Urine RBC 1 (0-5) /hpf Urine WBC 4 (0-5) /hpf Ur Squamous Epith Cells 9 H (0-4) /hpf Hyaline Casts 1 (0-2) /lpf Urine Mucus Many H (None) /hpf Urine HCG, Qual (Not Detectd) Acetone, Qual (Negative) 08/25/24 08/25/24 Range/Units 21:44 21:45 WBC (3.8-10.6) k/uL RBC (3.80-5.40) m/uL Hgb (11.4-16.0) gm/dL Hct (34.0-46.0) % MCV (80.0-100.0) fL MCH (25.0-35.0) pg MCHC (31.0-37.0) g/dL RDW (11.5-15.5) % Plt Count (150-450) k/uL MPV Neutrophils % % Lymphocytes % % Monocytes % % Eosinophils % % Basophils % % Neutrophils # (1.3-7.7) k/uL Lymphocytes # (1.0-4.8) k/uL Monocytes # (0-1.0) k/uL Eosinophils # (0-0.7) k/uL Basophils # (0-0.2) k/uL PT (10.0-12.5) sec INR (<1.2) APTT (22.0-30.0) sec D-Dimer (<0.60) mg/L FEU Sodium (137-145) mmol/L Potassium (3.5-5.1) mmol/L Chloride (98-107) mmol/L Carbon Dioxide (22-30) mmol/L Anion Gap mmol/L BUN (7-17) mg/dL Creatinine (0.52-1.04) mg/dL Est GFR (CKD-EPI)AfAm (>60 ml/min/1.73 sqM) Est GFR (CKD-EPI)NonAf (>60 ml/min/1.73 sqM) Glucose (74-99) mg/dL Calcium (8.4-10.2) mg/dL Magnesium (1.6-2.3) mg/dL Total Bilirubin (0.2-1.3) mg/dL AST (14-36) U/L ALT (4-34) U/L Alkaline Phosphatase (38-126) U/L Troponin I <0.012 (0.000-0.034) ng/mL Total Protein (6.3-8.2) g/dL Albumin (3.5-5.0) g/dL Lipase (23-300) U/L Urine Color Urine Appearance (Clear) Urine pH (5.0-8.0) Ur Specific [place] (1.001-1.035) Urine Protein (Negative) Urine Glucose (UA) (Negative) Urine Ketones (Negative) Urine Blood (Negative) Urine Nitrite (Negative) Urine Bilirubin (Negative) Urine Urobilinogen (<2.0) mg/dL Ur Leukocyte Esterase (Negative) Urine RBC (0-5) /hpf Urine WBC (0-5) /hpf Ur Squamous Epith Cells (0-4) /hpf Hyaline Casts (0-2) /lpf Urine Mucus (None) /hpf Urine HCG, Qual Not Detected (Not Detectd) Acetone, Qual (Negative) Disposition <Jeanne Jorge - Last Filed: 08/25/24 18:26> Is patient prescribed a controlled substance at d/c from ED?: No Time of Disposition: 22:40 <Jess Boyle - Last Filed: 08/29/24 13:52> Clinical Impression: Chest pain Disposition: HOME SELF-CARE Condition: Stable Instructions (If sedation given, give patient instructions): Chest Pain (ED) Additional Instructions: Please follow-up with your primary care doctor in regards to your pain. Return for any new or worsening symptoms Referrals: Elena Hoffman MD [Primary Care Provider] - 1-2 days
[2024-08-25 18:53] LABS: Basophils % (A) 0 %; Eosinophils # (A) 0.1 k/uL (0-0.7); Eosinophils % (A) 1 %; HCT 43.5 % (34.0-46.0); HGB 14.2 gm/dL (11.4-16.0); Lymphocytes # (A) 2.4 k/uL (1.0-4.8); Lymphocytes % (A) 23 %; MCHC 32.7 g/dL (31.0-37.0); MCV 88.7 fL (80.0-100.0); Mean Platelet Volume 6.8; Monocytes # (A) 0.6 k/uL (0-1.0); Monocytes % (A) 5 %; Neutrophils # (A) 7.3 k/uL (1.3-7.7); Neutrophils % (A) 68 %; Platelet Count 399 k/uL (150-450); RDW 12.3 % (11.5-15.5); WBC 10.7 k/uL (3.8-10.6)
[2024-08-25 19:02] LABS: ALT 16 U/L (4-34); AST 23 U/L (14-36); African American GFR (CKD) >90 (>60 ml/min/1.73 sqM); Albumin 4.8 g/dL (3.5-5.0); Alkaline Phosphatase 63 U/L (38-126); Anion Gap 9 mmol/L; Blood Urea Nitrogen 22 mg/dL (7-17); Calcium 9.8 mg/dL (8.4-10.2); Carbon Dioxide 29 mmol/L (22-30); Chloride 104 mmol/L (98-107); Glucose 88 mg/dL (74-99); Lipase 44 U/L (23-300); Magnesium 1.7 mg/dL (1.6-2.3); Non-African American GFR(CKD) >90 (>60 ml/min/1.73 sqM); Potassium 3.6 mmol/L (3.5-5.1); Sodium 142 mmol/L (137-145); Total Protein 7.7 g/dL (6.3-8.2)
[2024-08-25 19:04] LABS: INR 0.9 (<1.2); Partial Thromboplastin Time 23.4 sec (22.0-30.0); Prothrombin Time 10.3 sec (10.0-12.5)
--- NOTE | 2024-08-25 19:32 | XR ---
EXAMINATION TYPE: XR chest 2V DATE OF EXAM: 08/25/2024 COMPARISON: 09/03/2023 HISTORY: 23-year-old female with chest pain TECHNIQUE: PA and lateral views FINDINGS: The cardiomediastinal silhouette, aorta, and pulmonary vasculature are within normal limits. Lungs an d pleural spaces are clear. IMPRESSION: No acute cardiopulmonary process. [facility] Lauren Brown, , 08/25/2024 7:29 PM
[2024-08-25 20:05] VITALS: RESP 16
[2024-08-25 20:24] LABS: Appearance,Urine Cloudy (Clear); Bilirubin,Urine Negative (Negative); Blood,Urine Small (Negative); Color,Urine Yellow; Glucose,Urine (UA) Negative (Negative); Hyaline Casts,Urine 1 /lpf (0-2); Ketones,Urine Negative (Negative); Leukocyte Esterase,Urine Negative (Negative); Mucus,Urine Many /hpf; Nitrite,Urine Negative (Negative); PH, Urine 6.5 (5.0-8.0); Protein,Urine Trace (Negative); RBC,Urine 1 /hpf (0-5); Specific Gravity,Urine 1.033 (1.001-1.035); Squamous Epithelial Cell,Urine 9 /hpf (0-4); Urobilinogen,Urine <2.0 mg/dL (<2.0); WBC,Urine 4 /hpf (0-5)
[2024-08-25 22:43] VITALS: BP 101/65; PULSE 61; TEMP 98
[2024-08-25] MEDS: KETOROLAC 15 MG/ML 1 ML VIAL IVP STA (22:44)
== END 2024-08-25 22:50 | disposition home or self-care (01) ==
LOC: EC 18:04
CPT/HCPCS: 36415; 71046; 80053; 81001; 81025; 82009; 83690; 83735; 84484; 85025; 85379; 85610; 85730; 93005; 96374; 99285